=== PATIENT | female | born 1930 | race Caucasian/White ===

== ENCOUNTER → 2016-06-15 | Outpatient (CLI) | payer MEDICARE ==
[~2016-06-15] MED LIST: ASPI81 PO; ATAC32TA4 PO; FE FCAP; LEVO.1 PO
[2016-06-15 13:38] LABS: HEMATOCRIT 33.7 % (35.0-46.0); MEAN CELL VOLUME 98.2 FL (80.0-100.0); MEAN CORPUSCULAR HEMOGLOBIN 32.4 PG (27.0-34.0); PLATELET COUNT 292 TH/MM3 (150-450); RED BLOOD COUNT 3.43 MIL/MM3 (4.00-5.30); RED CELL DISTRIBUTION WIDTH 13.5 % (11.6-17.2); REVIEW FLAG FINAL; WHITE BLOOD COUNT 7.5 TH/MM3 (4.0-11.0)
[2016-06-15 14:08] LABS: ANION GAP 7 MEQ/L (5-15); AST (GOT) 11 U/L (15-37); BICARBONATE 23.6 MEQ/L (21.0-32.0); BLOOD UREA NITROGEN 35 MG/DL (7-18); CHLORIDE 113 MEQ/L (98-107); GLOMERULAR FILTRATION RATE 28 ML/MIN (>89); GLUCOSE,FASTING 135 MG/DL (74-99); POTASSIUM 5.1 MEQ/L (3.5-5.1); SODIUM (NA) 144 MEQ/L (136-145)
[2016-06-15 14:20] LABS: ALKALINE PHOSPHATASE 65 U/L (45-117); ALT (GPT) 17 U/L (10-53); FREE T4 1.26 NG/DL (0.76-1.46); HDL CHOLESTEROL 34.5 MG/DL (40.0-60.0); LDL CHOLESTEROL 111 MG/DL (0-99); LDL CHOLESTEROL DIRECT 125 MG/DL (0-99); TOTAL BILIRUBIN ADULT 0.3 MG/DL (0.2-1.0)
[2016-06-15 14:21] LABS: HEMOGLOBIN A1a 1.2 %; HEMOGLOBIN A1b 2.1 %; HEMOGLOBIN Ao 83.4 %; HEMOGLOBIN LA1C 2.3 %; HEMOGLOBIN P3 5.7 %
== END ==
LOC: PLAB 08:45
PROVIDERS: ATTEND Family Medicine
DX: I12.9 Hypertensive chronic kidney disease with stage 1 through stage 4 chronic kidney disease, or unspecified chronic kidney disease (principal); N18.3 Chronic kidney disease, stage 3 (moderate); E11.9 Type 2 diabetes mellitus without complications; E78.2 Mixed hyperlipidemia; E03.8 Other specified hypothyroidism
CPT/HCPCS: 36415; 80053; 80061; 83036; 83721; 84439; 84443; 85027

== ENCOUNTER → 2016-09-17 | Outpatient (CLI) | payer MEDICARE ==
[2016-09-17 09:52] LABS: HEMATOCRIT 33.7 % (35.0-46.0); MEAN CELL VOLUME 94.8 FL (80.0-100.0); MEAN CORPUSCULAR HEMOGLOBIN 30.6 PG (27.0-34.0); MEAN CORPUSCULAR HGB CONC 32.3 % (32.0-36.0); PLATELET COUNT 307 TH/MM3 (150-450); RED BLOOD COUNT 3.56 MIL/MM3 (4.00-5.30); RED CELL DISTRIBUTION WIDTH 13.7 % (11.6-17.2); REVIEW FLAG FINAL; WHITE BLOOD COUNT 9.1 TH/MM3 (4.0-11.0)
[2016-09-17 10:27] LABS: ANION GAP 9 MEQ/L (5-15); AST (GOT) 17 U/L (15-37); BICARBONATE 21.6 MEQ/L (21.0-32.0); BLOOD UREA NITROGEN 37 MG/DL (7-18); CHLORIDE 110 MEQ/L (98-107); GLOMERULAR FILTRATION RATE 28 ML/MIN (>89); GLUCOSE,FASTING 120 MG/DL (74-99); SODIUM (NA) 141 MEQ/L (136-145)
[2016-09-17 10:36] LABS: ALKALINE PHOSPHATASE 65 U/L (45-117); ALT (GPT) 20 U/L (10-53); FREE T4 1.15 NG/DL (0.76-1.46); HDL CHOLESTEROL 28.6 MG/DL (40.0-60.0); LDL CHOLESTEROL 107 MG/DL (0-99); LDL CHOLESTEROL DIRECT 112 MG/DL (0-99); TOTAL BILIRUBIN ADULT 0.3 MG/DL (0.2-1.0)
[2016-09-17 16:46] LABS: HEMOGLOBIN A1a 0.9 %; HEMOGLOBIN A1b 2.1 %; HEMOGLOBIN Ao 83.1 %; HEMOGLOBIN LA1C 2.2 %; HEMOGLOBIN P3 6.2 %
== END ==
LOC: PLAB 08:19
PROVIDERS: ATTEND Family Medicine
DX: E78.2 Mixed hyperlipidemia (principal); I12.9 Hypertensive chronic kidney disease with stage 1 through stage 4 chronic kidney disease, or unspecified chronic kidney disease; N18.9 Chronic kidney disease, unspecified; E11.22 Type 2 diabetes mellitus with diabetic chronic kidney disease
CPT/HCPCS: 36415; 80053; 80061; 83036; 83721; 84439; 84443; 85027

== ENCOUNTER 2017-02-24 10:45 | Emergency (ER) | payer MEDICARE ==
[~2017-02-24] VITALS: Ht 170.2 cm; Wt 95.0 kg
[2017-02-24] VITALS (8 sets, daily range): BP systolic 121–193; BP diastolic 64–89; PULSE 63–80; RESP 16–23; TEMP 97.2–97.9; O2SAT 96–100
[2017-02-24] MEDS ORDERED: ATAC32TA4 PO (11:23)
[2017-02-24] MEDS ORDERED: LEVO100T5 PO (11:23)
[2017-02-24] MEDS ORDERED: ASPI1TAB57 PO (11:23)
--- NOTE | 2017-02-24 11:25 | PD ---
HPI Chief Complaint: Headache Time Seen by Provider: 11:13 Travel History International Travel<30 days: No Contact w/Intl Traveler<30days: No Traveled to known affect area: No History of Present Illness HPI The patient is a 86-year-old female who presents to the emergency department for lightheadedness and dizziness. The patient states her symptoms started this morning approximately 6 AM. The patient states that she feels like the room is spinning, also feels lightheaded with nausea and vomiting. The patient does have a history of similar symptoms in the past secondary to vertigo. The patient's did try to administer a dose of her medication for dizziness, however, she subsequently had nausea and vomiting. The patient does complain of intermittent headaches, denies any current headache. She denies any chest pain, shortness of breath, or abdominal pain. She denies any focal deficits of the upper or lower extremities. She does state the room is spinning, but denies any exacerbation by positional changes or head movement. The patient's primary physician is Dr. Erlin Wynn. [facility] Past Medical History Anemia: Yes Cancer: No Cardiovascular Problems: Yes (heart murmur) High Cholesterol: Yes Diabetes: Yes Diminished Hearing: No Hepatitis: No Hiatal Hernia: No Hypertension: Yes Respiratory: No Thyroid Disease: Yes Menopausal: Yes Past Surgical History Endocrine Surgery: Yes (THYROID REMOVAL) Eye Surgery: Yes (swetha cataract surgery) Gynecologic Surgery: Yes (OVARIES REMOVED ) Hysterectomy: Yes (PARTIAL) Other Surgery: Yes Social History Alcohol Use: Yes (1-2 DRINKS A MONTH) Tobacco Use: No Substance Use: No Allergies-Medications (Allergen,Severity, Reaction): Coded Allergies: Sulfa (Sulfonamide Antibiotics) (Verified Allergy, Severe, Hallucinations , Elevated blood pressure, 02/24/17) *MDRO Multi-Drug Resistant Organism (Verified Adverse Reaction, Unknown, 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 Reported Meds & Prescriptions Reported Meds & Active Scripts Active Reported Levothyroxine (Levothyroxine Sodium) 100 Mcg Tab 100 Mcg PO DAILY Atacand Hct (Candesartan-Hydrochlorothiazide) 32-12.5 Mg Tab 1 Tab PO DAILY Aspirin 81 (Aspirin) 81 Mg Tabdr 81 Mg PO DAILY Review of Systems Except as stated in HPI: all other systems reviewed are Neg General / Constitutional: No: Fever Eyes: No: Blurred Vision HENT: Positive: Headaches (intermittent, denies current headache), Vertigo, Lightheadedness Cardiovascular: No: Chest Pain or Discomfort, Palpitations, Tachycardia, Diaphoresis Respiratory: No: Shortness of Breath Gastrointestinal: Positive: Nausea, Vomiting, No: Abdominal Pain Musculoskeletal: No: Weakness Neurologic: Positive: Dizziness, No: Weakness, Focal Abnormalities, Change in Mentation, Slurred Speech, Paresthesia, Sensory Disturbance Physical Exam Narrative GENERAL: Awake, alert, pleasant 86 year-old female who appears her stated age and is in no acute respiratory distress. SKIN: Focused skin assessment warm/dry. HEAD: Atraumatic. Normocephalic. EYES: Pupils equal and round. Pupils are 3 mm is bilateral and reactive. EOMs are intact. Patient is able to see fingers at a distance of 2 feet without difficulty. ENT: No nasal bleeding or discharge. Mucous membranes pink and moist. No visible teeth are dentures. NECK: Trachea midline. No JVD. CARDIOVASCULAR: Regular rate and rhythm. Systolic murmur noted. RESPIRATORY: No accessory muscle use. Clear to auscultation. Breath sounds equal bilaterally. GASTROINTESTINAL: Abdomen soft, non-tender, nondistended. No rebound tenderness. MUSCULOSKELETAL: No obvious deformities. No clubbing. No cyanosis. Bilateral lower extremity pitting edema. NEUROLOGICAL: Awake and alert. No obvious cranial nerve deficits. Motor grossly within normal limits. Normal speech. Nonfocal. Oriented 4. Follows commands without difficulty. Data Data Last Documented VS Vital Signs Date Time Temp Pulse Resp B/P (MAP) Pulse Ox O2 Delivery O2 Flow Rate FiO2 02/24/17 12:28 67 172/78 (109) 02/24/17 12:15 97.5 17 97 Room Air Orders Orders Electrocardiogram (02/24/17 11:19) Complete Blood Count With Diff (02/24/17 11:19) Comprehensive Metabolic Panel (02/24/17 11:19) Magnesium (Mg) (02/24/17 11:19) Ckmb (Isoenzyme) Profile (02/24/17 11:19) Troponin I (02/24/17 11:19) Urinalysis - C+S If Indicated (02/24/17 11:19) Ct Brain W/O Iv Contrast(Rout) (02/24/17 11:19) Ecg Monitoring (02/24/17 11:19) Iv Access Insert/Monitor (02/24/17 11:19) Oximetry (02/24/17 11:19) Meclizine (Antivert) (02/24/17 11:30) Ondansetron Inj (Zofran Inj) (02/24/17 11:30) Sodium Chloride 0.9% Flush (Ns Flush) (02/24/17 11:30) Orthostatic Vital Signs (02/24/17 11:19) Sodium Chlor 0.9% 250 Ml Inj (Ns 250 Ml (02/24/17 11:30) Hydralazine Inj (Apresoline Inj) (02/24/17 12:30) Urine Culture (02/24/17 12:53) Ceftriaxone Inj (Rocephin Inj) (02/24/17 13:30) Labs Laboratory Tests Test 02/24/17 11:43 02/24/17 12:53 White Blood Count 8.3 TH/MM3 Red Blood Count 3.65 MIL/MM3 Hemoglobin 11.2 GM/DL Hematocrit 34.7 % Mean Corpuscular Volume 94.8 FL Mean Corpuscular Hemoglobin 30.7 PG Mean Corpuscular Hemoglobin Concent 32.4 % Red Cell Distribution Width 13.4 % Platelet Count 269 TH/MM3 Mean Platelet Volume 7.4 FL Neutrophils (%) (Auto) 91.4 % Lymphocytes (%) (Auto) 6.3 % Monocytes (%) (Auto) 1.5 % Eosinophils (%) (Auto) 0.5 % Basophils (%) (Auto) 0.3 % Neutrophils # (Auto) 7.7 TH/MM3 Lymphocytes # (Auto) 0.5 TH/MM3 Monocytes # (Auto) 0.1 TH/MM3 Eosinophils # (Auto) 0.0 TH/MM3 Basophils # (Auto) 0.0 TH/MM3 CBC Comment DIFF FINAL Differential Comment Blood Urea Nitrogen 32 MG/DL Creatinine 2.00 MG/DL Random Glucose 154 MG/DL Total Protein 7.7 GM/DL Albumin 3.6 GM/DL Calcium Level 8.9 MG/DL Magnesium Level 2.1 MG/DL Alkaline Phosphatase 71 U/L Aspartate Amino Transf (AST/SGOT) 12 U/L Alanine Aminotransferase (ALT/SGPT) 15 U/L Total Bilirubin 0.2 MG/DL Sodium Level 142 MEQ/L Potassium Level 5.6 MEQ/L Chloride Level 113 MEQ/L Carbon Dioxide Level 21.5 MEQ/L Anion Gap 8 MEQ/L Estimat Glomerular Filtration Rate 24 ML/MIN Total Creatine Kinase 62 U/L Troponin I LESS THAN 0.02 NG/ML Urine Collection Type CLEAN CATCH Urine Color YELLOW Urine Turbidity SLIGHTY CLOUDY Urine pH 5.5 Urine Specific [place] 1.015 Urine Protein TRACE mg/dL Urine Glucose (UA) NEG mg/dL Urine Ketones NEG mg/dL Urine Occult Blood NEG Urine Nitrite NEG Urine Bilirubin NEG Urine Leukocyte Esterase MOD Urine RBC 0-3 /hpf Urine WBC 25-49 /hpf Urine WBC Clumps MOD Urine Bacteria FEW /hpf Microscopic Urinalysis Comment CULTURE INDICATED MDM Medical Decision Making Medical Screen Exam Complete: Yes Emergency Medical Condition: Yes Medical Record Reviewed: Yes Interpretation(s) EKG reveals normal sinus rhythm with a rate of 65. Q wave noted in lead 3. Low QRS voltage in precordial leads. CT of the brain reveals normal for age Last Impressions Head CT 02/24/17 1119 Signed Impressions: Service Date/Time: Friday, February 24, 2017 11:48 - CONCLUSION: Normal for age. Max Gonzalez MD Laboratory Tests Test 02/24/17 11:43 02/24/17 12:53 White Blood Count 8.3 TH/MM3 Red Blood Count 3.65 MIL/MM3 Hemoglobin 11.2 GM/DL Hematocrit 34.7 % Mean Corpuscular Volume 94.8 FL Mean Corpuscular Hemoglobin 30.7 PG Mean Corpuscular Hemoglobin Concent 32.4 % Red Cell Distribution Width 13.4 % Platelet Count 269 TH/MM3 Mean Platelet Volume 7.4 FL Neutrophils (%) (Auto) 91.4 % Lymphocytes (%) (Auto) 6.3 % Monocytes (%) (Auto) 1.5 % Eosinophils (%) (Auto) 0.5 % Basophils (%) (Auto) 0.3 % Neutrophils # (Auto) 7.7 TH/MM3 Lymphocytes # (Auto) 0.5 TH/MM3 Monocytes # (Auto) 0.1 TH/MM3 Eosinophils # (Auto) 0.0 TH/MM3 Basophils # (Auto) 0.0 TH/MM3 CBC Comment DIFF FINAL Differential Comment Blood Urea Nitrogen 32 MG/DL Creatinine 2.00 MG/DL Random Glucose 154 MG/DL Total Protein 7.7 GM/DL Albumin 3.6 GM/DL Calcium Level 8.9 MG/DL Magnesium Level 2.1 MG/DL Alkaline Phosphatase 71 U/L Aspartate Amino Transf (AST/SGOT) 12 U/L Alanine Aminotransferase (ALT/SGPT) 15 U/L Total Bilirubin 0.2 MG/DL Sodium Level 142 MEQ/L Potassium Level 5.6 MEQ/L Chloride Level 113 MEQ/L Carbon Dioxide Level 21.5 MEQ/L Anion Gap 8 MEQ/L Estimat Glomerular Filtration Rate 24 ML/MIN Total Creatine Kinase 62 U/L Troponin I LESS THAN 0.02 NG/ML Urine Collection Type CLEAN CATCH Urine Color YELLOW Urine Turbidity SLIGHTY CLOUDY Urine pH 5.5 Urine Specific [place] 1.015 Urine Protein TRACE mg/dL Urine Glucose (UA) NEG mg/dL Urine Ketones NEG mg/dL Urine Occult Blood NEG Urine Nitrite NEG Urine Bilirubin NEG Urine Leukocyte Esterase MOD Urine RBC 0-3 /hpf Urine WBC 25-49 /hpf Urine WBC Clumps MOD Urine Bacteria FEW /hpf Microscopic Urinalysis Comment CULTURE INDICATED Differential Diagnosis Differential diagnosis includes vertigo, labyrinthitis, serous otitis, labyrinthitis, Mnire's disease, hyponatremia, arrhythmia, intracranial hemorrhage, cerebellar CVA, UTI. Narrative Course IV was established, labs are drawn and sent, and the patient was placed on cardiac telemetry monitoring and continuous pulse oximetry monitoring. EKG was ordered and interpreted. Orthostatic vital signs were obtained. The patient was administered Zofran, meclizine, normal saline [address] of the brain was obtained. CT of the brain was negative. The patient's creatinine was 2, GFR was 32, her baseline GFR appears to be between 32 and 37. Potassium is mildly elevated at 5.6,, her baseline potassium appears to be around 5-5.2 based on previous laboratory evaluations. EKG reveals no evidence of hyperkalemia. The patient's blood pressure was elevated with a systolic 190s and diastolic in the 80s, therefore, patient was administered hydralazine intravenously. UA reveals moderate leukocyte esterase, bacteria, and WBCs consistent with UTI. The patient was health care specialist Rocephin 1 g intravenously and will be placed on Macrobid. The patient is advised to take her antihypertensive medication when she returns home. She will also be prescribed Zofran and meclizine as needed for her vertigo. Return if symptoms worsen or progress. Diagnosis Primary Impression: Vertigo Additional Impressions: Nausea & vomiting Qualified Codes: R11.2 - Nausea with vomiting, unspecified UTI (urinary tract infection) Qualified Codes: N30.00 - Acute cystitis without hematuria Patient Instructions: General Instructions Additional Instructions: Medications as directed. Repeat your creatinine and potassium level with your primary physician. Follow-up with your primary physician. Please provide the patient a copy of her CT results and lab results at discharge. Return if symptoms worsen or progress. Med/Other Pt SpecificInfo: Prescription(s) given Scripts Meclizine (Meclizine) 25 Mg Tab 25 MG PO TID Y for VERTIGO, #12 TAB 0 Refills Prov: Enrique Fontanez MD 02/24/17 Ondansetron Odt (Zofran Odt) 4 Mg Tab 4 MG SL Q6HR Y for Nausea/Vomiting, #10 TAB 0 Refills Prov: Enrique Fontanez MD 02/24/17 Nitrofurantoin Monohydrate Macrocrystals (Macrobid) 100 Mg Cap 100 MG PO BID for Infection for 10 Days, #20 CAP 0 Refills Prov: Enrique Fontanez MD 02/24/17 Disposition: 01 DISCHARGE HOME Condition: Stable Enrique Fontanez MD Feb 24, 2017 11:25
[2017-02-24] MEDS ORDERED: MECLIZINE HCL 25 MG TAB PO ONE (11:30)
[2017-02-24] MEDS ORDERED: SODIUM CHLOR 0.9% 250 ML INJ 250 ML IV ONE (11:30)
[2017-02-24] MEDS ORDERED: SODIUM CHLORIDE 0.9% FLUSH 10 ML FLUSH IVF PRN (11:30)
[2017-02-24] MEDS ORDERED: ONDANSETRON HCL 4 MG/2 ML VIAL IVP ONE (11:30)
[2017-02-24 11:47] LABS: AUTOMATED NEUTROPHIL # 7.7 TH/MM3 (1.8-7.7); BASOPHIL % 0.3 % (0.0-2.0); EOSINOPHIL % 0.5 % (0.0-4.0); HEMATOCRIT 34.7 % (35.0-46.0); HEMO FLAGS DIFF FINAL; LYMPH % 6.3 % (9.0-44.0); LYMPHOCYTE # 0.5 TH/MM3 (1.0-4.8); MEAN CELL VOLUME 94.8 FL (80.0-100.0); MEAN CORPUSCULAR HEMOGLOBIN 30.7 PG (27.0-34.0); MEAN CORPUSCULAR HGB CONC 32.4 % (32.0-36.0); MONO % 1.5 % (0.0-8.0); NEUT % 91.4 % (16.0-70.0); PLATELET COUNT 269 TH/MM3 (150-450); RED BLOOD COUNT 3.65 MIL/MM3 (4.00-5.30); RED CELL DISTRIBUTION WIDTH 13.4 % (11.6-17.2); WHITE BLOOD COUNT 8.3 TH/MM3 (4.0-11.0)
[2017-02-24 11:56] LABS: CHLORIDE 113 MEQ/L (98-107); POTASSIUM 5.6 MEQ/L (3.5-5.1); SODIUM (NA) 142 MEQ/L (136-145)
[2017-02-24 12:00] LABS: ANION GAP 8 MEQ/L (5-15); BICARBONATE 21.5 MEQ/L (21.0-32.0); BLOOD UREA NITROGEN 32 MG/DL (7-18); MAGNESIUM 2.1 MG/DL (1.5-2.5)
[2017-02-24 12:03] LABS: ALT (GPT) 15 U/L (10-53); AST (GOT) 12 U/L (15-37); GLOMERULAR FILTRATION RATE 24 ML/MIN (>89)
--- NOTE | 2017-02-24 12:03 | RADRPT ---
EXAM DATE/TIME: 02/24/2017 11:48 [facility] COMPARISON: CT BRAIN W/O CONTRAST, August 18, 2015, 11:22. INDICATIONS : Headache and dizziness. RADIATION DOSE: 59.96 CTDIvol (mGy) MEDICAL HISTORY : Hypertension. Hypothyroidism. Hypercholesterolemia.Diabetes. SURGICAL HISTORY : Thyroidectomy. Bilateral cataract. ENCOUNTER: Initial ACUITY: 1 day PAIN SCALE: 4/10 LOCATION: cranial TECHNIQUE: Multiple contiguous axial images were obtained of the head. Using automated exposure control and adj ustment of the mA and/or kV according to patient size, radiation dose was kept as low as reasonably a chievable to obtain optimal diagnostic quality images. DICOM format image data is available electro nically for review and comparison. FINDINGS: CEREBRUM: The ventricles are normal for age. No evidence of midline shift, mass lesion, hemorrhage or acute in farction. No extra-axial fluid collections are seen. POSTERIOR FOSSA: The cerebellum and brainstem are intact. The 4th ventricle is midline. The cerebellopontine angle i s unremarkable. EXTRACRANIAL: The visualized portion of the orbits is intact. SKULL: The calvaria is intact. No evidence of skull fracture. CONCLUSION: Normal for age. Max Gonzalez MD on February 24, 2017 at 12:01 Board Certified Radiologist. This report was verified electronically.
[2017-02-24 12:05] LABS: TOTAL BILIRUBIN ADULT 0.2 MG/DL (0.2-1.0)
[2017-02-24 12:06] LABS: ALKALINE PHOSPHATASE 71 U/L (45-117)
[2017-02-24 12:07] LABS: CREATINE KINASE 62 U/L (26-192)
[2017-02-24] MEDS ORDERED: hydrALAZINE HCL 20 MG/ML VIAL IV PUSH ONE (12:30)
[2017-02-24 13:07] LABS: BLOOD, URINE NEG (NEG); GLUCOSE,URINE NEG (NEG); KETONE, URINE NEG (NEG); NITRITE,URINE NEG (NEG); PH, URINE 5.5 (5.0-8.5)
[2017-02-24 13:13] LABS: METHOD OF COLLECTION CLEAN CATCH; URINE COLOR YELLOW (YELLW/STRAW)
[2017-02-24 13:14] LABS: BACTERIA, URINE FEW /hpf; COMMENT (UR) CULTURE INDICATED; CULTURE IF INDICATED CULTURE INDICATED; RBC, URINE 0-3 /hpf (0-3)
[2017-02-24] MEDS ORDERED: MECL-62 PO (13:20)
[2017-02-24] MEDS ORDERED: ZOFR4TAB3 SL (13:20)
[2017-02-24] MEDS ORDERED: MACR100C2 PO (13:20)
[2017-02-24] MEDS ORDERED: cefTRIAXone INJ 1,000 MG in SODIUM CHLORIDE 0.9% INJ 100 ML IV ONE (13:30)
--- NOTE | 2017-02-25 16:13 | EKG ---
Date Performed: 02/24/2017 Time Performed: 11:24:55 PTAGE: 86 years EKG: Sinus rhythm MARKED LEFT AXIS DEVIATION LOW QRS VOLTAGE IN PRECORDIAL LEADS POSSIBLE ANTERIOR MYOCARDIAL INFARCTI ON Compared to prior tracing no significant change ABNORMAL ECG PREVIOUS TRACING : 08/18/2015 10.02 DOCTOR: El Pedraza Interpretating Date/Time 02/25/2017 16:12:03
== END 2017-02-24 15:13 | disposition home or self-care (01) ==
LOC: PHED 10:45
DX: R42 Dizziness and giddiness (principal); R11.2 Nausea with vomiting, unspecified; R94.31 Abnormal electrocardiogram [ECG] [EKG]; N30.00 Acute cystitis without hematuria; B96.1 Klebsiella pneumoniae [K. pneumoniae] as the cause of diseases classified elsewhere
CPT/HCPCS: 70450; 80053; 81001; 82550; 83735; 84484; 85025; 87077; 87086; 87186; 93005; 96361; 96365; 96375; 99285; J0360; J0696; J2405; J7050

== ENCOUNTER 2017-03-09 11:15 | Emergency (ER) | payer MEDICARE ==
[~2017-03-09] VITALS: Ht 170.2 cm; Wt 93.5 kg
[~2017-03-09 11:15] MED LIST changes: +ASPI1TAB57 PO; -ASPI81 PO; -FE FCAP; -LEVO.1 PO; +LEVO100T5 PO; +MACR100C2 PO; +MECL-62 PO; +ZOFR4TAB3 SL
[2017-03-09 11:29] VITALS: BP 199/77; PULSE 75; RESP 18; TEMP 98
--- NOTE | 2017-03-09 11:56 | PD ---
HPI Chief Complaint: Dizziness Time Seen by Provider: 11:39 Travel History International Travel<30 days: No Contact w/Intl Traveler<30days: No Traveled to known affect area: No History of Present Illness HPI Patient is an 86-year-old female with a history of vertigo presents the emergency department for evaluation of dizziness and nausea onset this morning at breakfast several hours ago. Patient was here to 3 weeks ago had CAT scan of her head as well as basic labs was given meclizine and Zofran as she had nausea and vomiting at that time and began to feel better. The patient relates a history to me that she had vertigo before and her did "a maneuver" probably the Ebenezer maneuver and this relieved her vertigo for many years and that returned a few days ago. Patient denies any focalized weakness visual difficulties denies any nausea or vomiting today. She states her symptoms are moderate, context as above, associated signs symptoms as above, no alleviating or exacerbating factors. She did take meclizine prior to arrival which no relief. PFSH Past Medical History Anemia: Yes Cancer: No Cardiovascular Problems: Yes (heart murmur) High Cholesterol: Yes Diabetes: Yes Patient Takes Glucophage: No Diminished Hearing: No Hepatitis: No Hiatal Hernia: No Hypertension: Yes Medical other: Yes (rheumatoid arthritis,hx of anemia,back problems) Respiratory: No Thyroid Disease: Yes Menopausal: Yes Past Surgical History Endocrine Surgery: Yes (THYROID REMOVAL) Eye Surgery: Yes (swetha cataract surgery) Gynecologic Surgery: Yes (OVARIES REMOVED ) Hysterectomy: Yes (PARTIAL) Other Surgery: Yes Social History Alcohol Use: No Tobacco Use: No Substance Use: No Allergies-Medications (Allergen,Severity, Reaction): Coded Allergies: Sulfa (Sulfonamide Antibiotics) (Verified Allergy, Severe, Hallucinations , Elevated blood pressure, 02/24/17) *MDRO Multi-Drug Resistant Organism (Verified Adverse Reaction, Unknown, 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 SKIN: Focused skin assessment warm/dry. HEAD: Atraumatic. Normocephalic. EYES: Pupils equal and round. No scleral icterus. No injection or drainage. ENT: No nasal bleeding or discharge. Mucous membranes pink and moist. NECK: Trachea midline. No JVD. CARDIOVASCULAR: Regular rate and rhythm. No murmur appreciated. RESPIRATORY: No accessory muscle use. Clear to auscultation. Breath sounds equal bilaterally. GASTROINTESTINAL: Abdomen soft, non-tender, nondistended. Hepatic and splenic margins not palpable. MUSCULOSKELETAL: No obvious deformities. No clubbing. No cyanosis. No edema. NEUROLOGICAL: Awake and alert. Cranial nerves II through XII are grossly intact and nonfocal, no nystagmus is observed. Pupils equal round and reactive to light. Cerebellar testing with [id number] and heel ruiz testing are negative. Patient ambulates cruising along the cuevas reaching out for things to hold her balance. She has a short gait very intentional and appears fairly unbalanced. The Romberg sign was not attempted. PSYCHIATRIC: Appropriate mood and affect; insight and judgment normal. Data Data Last Documented VS Vital Signs Date Time Temp Pulse Resp B/P (MAP) Pulse Ox O2 Delivery O2 Flow Rate FiO2 03/09/17 15:07 03/09/17 14:46 77 18 95 Room Air 03/09/17 11:29 98.0 Orders Orders Electrocardiogram (03/09/17 11:51) Ckmb (Isoenzyme) Profile (03/09/17 11:51) Complete Blood Count With Diff (03/09/17 11:51) Comprehensive Metabolic Panel (03/09/17 11:51) Magnesium (Mg) (03/09/17 11:51) Prothrombin Time / Inr (Pt) (03/09/17 11:51) Act Partial Throm Time (Ptt) (03/09/17 11:51) Troponin I (03/09/17 11:51) Ecg Monitoring (03/09/17 11:51) Iv Access Insert/Monitor (03/09/17 11:51) Oximetry (03/09/17 11:51) Oxygen Administration (03/09/17 11:51) Aspirin Chew (Aspirin Chew) (03/09/17 12:00) Sodium Chloride 0.9% Flush (Ns Flush) (03/09/17 12:00) Mri Brain W/O Contrast (03/09/17 11:51) Diazepam (Valium) (03/09/17 12:00) Ed Discharge Order (03/09/17 14:54) Labs Laboratory Tests Test 03/09/17 12:05 White Blood Count 6.8 TH/MM3 Red Blood Count 3.43 MIL/MM3 Hemoglobin 10.8 GM/DL Hematocrit 32.4 % Mean Corpuscular Volume 94.6 FL Mean Corpuscular Hemoglobin 31.4 PG Mean Corpuscular Hemoglobin Concent 33.2 % Red Cell Distribution Width 13.3 % Platelet Count 242 TH/MM3 Mean Platelet Volume 7.4 FL Neutrophils (%) (Auto) 68.2 % Lymphocytes (%) (Auto) 19.3 % Monocytes (%) (Auto) 8.7 % Eosinophils (%) (Auto) 3.6 % Basophils (%) (Auto) 0.2 % Neutrophils # (Auto) 4.7 TH/MM3 Lymphocytes # (Auto) 1.3 TH/MM3 Monocytes # (Auto) 0.6 TH/MM3 Eosinophils # (Auto) 0.2 TH/MM3 Basophils # (Auto) 0.0 TH/MM3 CBC Comment DIFF FINAL Differential Comment Prothrombin Time 11.5 SEC Prothromb Time International Ratio 1.0 RATIO Activated Partial Thromboplast Time 28.7 SEC Blood Urea Nitrogen 37 MG/DL Creatinine 2.20 MG/DL Random Glucose 118 MG/DL Total Protein 7.6 GM/DL Albumin 3.4 GM/DL Calcium Level 8.4 MG/DL Magnesium Level 2.1 MG/DL Alkaline Phosphatase 76 U/L Aspartate Amino Transf (AST/SGOT) 12 U/L Alanine Aminotransferase (ALT/SGPT) 15 U/L Total Bilirubin 0.4 MG/DL Sodium Level 141 MEQ/L Potassium Level 4.9 MEQ/L Chloride Level 112 MEQ/L Carbon Dioxide Level 20.6 MEQ/L Anion Gap 8 MEQ/L Estimat Glomerular Filtration Rate 21 ML/MIN Total Creatine Kinase 59 U/L Troponin I LESS THAN 0.02 NG/ML MDM Medical Decision Making Medical Screen Exam Complete: Yes Emergency Medical Condition: Yes Differential Diagnosis Basilar stroke certainly a possibility, vertigo, electrolyte abnormality. Narrative Course Patient roomed in emergency department, underwent MRI imaging which showed no acute abnormality per Last 24 hours Impressions Brain MRI 03/09/17 1151 Signed Impressions: Service Date/Time: Saturday, March 09, 2017 14:18 - CONCLUSION: 1. Senescent changes with mild periventricular and deep white matter small vessel ischemic white matter demyelination. 2. No acute abnormality. Specifically, no evidence for acute ischemia/infarction, mass or hemorrhage. 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 He states symptoms are fairly mild. The patient is fairly slow to respond May but is otherwise able to give her appears to be an accurate history. At this time after Valium she is feeling much better and would like to go home. Discussed with them the Ebenezer maneuver and a handout was given, discussed follow-up the primary care physician and return to ED criteria. Diagnosis Primary Impression: Vertigo Disposition: 01 DISCHARGE HOME Condition: Stable Stefano Valle MD Mar 09, 2017 11:56
[2017-03-09] MEDS ORDERED: SODIUM CHLORIDE 0.9% FLUSH 10 ML FLUSH IVF PRN (12:00)
[2017-03-09] MEDS ORDERED: DIAZEPAM 5 MG TAB PO ONE (12:00)
[2017-03-09] MEDS ORDERED: ASPIRIN 81 MG CHEW TAB PO ONE (12:00)
[2017-03-09 12:13] LABS: AUTOMATED NEUTROPHIL # 4.7 TH/MM3 (1.8-7.7); BASOPHIL % 0.2 % (0.0-2.0); EOSINOPHIL # 0.2 TH/MM3 (0-0.4); EOSINOPHIL % 3.6 % (0.0-4.0); HEMATOCRIT 32.4 % (35.0-46.0); HEMO FLAGS DIFF FINAL; LYMPH % 19.3 % (9.0-44.0); LYMPHOCYTE # 1.3 TH/MM3 (1.0-4.8); MEAN CELL VOLUME 94.6 FL (80.0-100.0); MEAN CORPUSCULAR HEMOGLOBIN 31.4 PG (27.0-34.0); MEAN CORPUSCULAR HGB CONC 33.2 % (32.0-36.0); MONO % 8.7 % (0.0-8.0); NEUT % 68.2 % (16.0-70.0); PLATELET COUNT 242 TH/MM3 (150-450); RED BLOOD COUNT 3.43 MIL/MM3 (4.00-5.30); RED CELL DISTRIBUTION WIDTH 13.3 % (11.6-17.2); WHITE BLOOD COUNT 6.8 TH/MM3 (4.0-11.0)
[2017-03-09 12:15] VITALS: RESP 18; O2SAT 96
[2017-03-09 12:16] VITALS: BP 180/84; PULSE 68; RESP 18; O2SAT 96
[2017-03-09 12:23] LABS: CHLORIDE 112 MEQ/L (98-107); POTASSIUM 4.9 MEQ/L (3.5-5.1); SODIUM (NA) 141 MEQ/L (136-145)
[2017-03-09 12:26] LABS: ANION GAP 8 MEQ/L (5-15); BICARBONATE 20.6 MEQ/L (21.0-32.0); MAGNESIUM 2.1 MG/DL (1.5-2.5)
[2017-03-09 12:27] LABS: BLOOD UREA NITROGEN 37 MG/DL (7-18)
[2017-03-09 12:28] LABS: APTT (PATIENT) 28.7 SEC (24.3-30.1); PROTHROMBIN TIME - PATIENT 11.5 SEC (9.8-11.6)
[2017-03-09 12:30] LABS: ALT (GPT) 15 U/L (10-53); AST (GOT) 12 U/L (15-37); GLOMERULAR FILTRATION RATE 21 ML/MIN (>89)
[2017-03-09 12:31] LABS: TOTAL BILIRUBIN ADULT 0.4 MG/DL (0.2-1.0)
[2017-03-09 12:32] LABS: ALKALINE PHOSPHATASE 76 U/L (45-117)
[2017-03-09 12:37] LABS: CREATINE KINASE 59 U/L (26-192)
[2017-03-09 13:01] VITALS: BP 165/86; PULSE 66; RESP 18; O2SAT 95
[2017-03-09 14:19] VITALS: BP 196/90; PULSE 76; RESP 18; O2SAT 96
--- NOTE | 2017-03-09 14:35 | RADRPT ---
EXAM DATE/TIME: 03/09/2017 14:18 [facility] COMPARISON: No previous studies available for comparison. INDICATIONS : Dizziness. MEDICAL HISTORY : Hypertension. Hypercholesterolemia. Diabetes mellitus type 2. SURGICAL HISTORY : Cholecystectomy. Discectomy, lumbar. ENCOUNTER: Initial ACUITY: 1 day PAIN SCORE: 0/10 LOCATION: cranial TECHNIQUE: Multiplanar, multisequence MRI of the brain was performed without contrast. FINDINGS: CEREBRUM: Mild diffuse cerebral volume loss. The ventricles are normal for degree of atrophy. No evidence of m idline shift, mass lesion, hemorrhage or acute infarction. No extraaxial fluid collections are seen. The pituitary gland and suprasellar cistern are normal in configuration. WHITE MATTER: Mild periventricular and scattered deep white matter focal T2 prolongation consistent with small vess el ischemic white matter demyelination. POSTERIOR FOSSA: The cerebellum and brainstem are intact. The 4th ventricle is midline. The cerebellopontine angle is unremarkable. The cerebellar tonsils are normal in position. DIFFUSION IMAGING: No focal areas of restricted diffusion are seen. No evidence of acute infarction. EXTRACRANIAL: The visualized portions of the orbits and paranasal sinuses are unremarkable. CONCLUSION: 1. Senescent changes with mild periventricular and deep white matter small vessel ischemic white sarah er demyelination. 2. No acute abnormality. Specifically, no evidence for acute ischemia/infarction, mass or hemorrhage. Donnie Guardado MD on March 09, 2017 at 14:28 Board Certified Radiologist. This report was verified electronically.
[2017-03-09 14:46] VITALS: BP 171/76; PULSE 77; RESP 18; O2SAT 95
--- NOTE | 2017-03-10 22:53 | EKG ---
Date Performed: 03/09/2017 Time Performed: 12:03:02 PTAGE: 86 years EKG: Sinus rhythm BORDERLINE LEFT AXIS DEVIATION PREVIOUS TRACING : 02/24/2017 11.24 Compared to prior tracing no significant change DOCTOR: Cordell Arreola Interpretating Date/Time 03/10/2017 22:52:56
== END 2017-03-09 15:11 | disposition home or self-care (01) ==
LOC: PHED 11:15
DX: R42 Dizziness and giddiness (principal); I10 Essential (primary) hypertension; E07.9 Disorder of thyroid, unspecified; Z79.899 Other long term (current) drug therapy
CPT/HCPCS: 70551; 80053; 82550; 83735; 84484; 85025; 85610; 85730; 93005

== ENCOUNTER → 2017-03-19 | Outpatient (CLI) | payer MEDICARE ==
[~2017-03-19] MED LIST changes: -MACR100C2 PO
[2017-03-19 13:34] LABS: ANION GAP 8 MEQ/L (5-15); AST (GOT) 17 U/L (15-37); BICARBONATE 21.4 MEQ/L (21.0-32.0); BLOOD UREA NITROGEN 35 MG/DL (7-18); CHLORIDE 114 MEQ/L (98-107); GLOMERULAR FILTRATION RATE 19 ML/MIN (>89); HEMATOCRIT 34.1 % (35.0-46.0); MEAN CELL VOLUME 97.6 FL (80.0-100.0); MEAN CORPUSCULAR HEMOGLOBIN 32.2 PG (27.0-34.0); PLATELET COUNT 259 TH/MM3 (150-450); POTASSIUM 4.7 MEQ/L (3.5-5.1); RED BLOOD COUNT 3.49 MIL/MM3 (4.00-5.30); RED CELL DISTRIBUTION WIDTH 14.4 % (11.6-17.2); REVIEW FLAG FINAL; SODIUM (NA) 143 MEQ/L (136-145); WHITE BLOOD COUNT 7.5 TH/MM3 (4.0-11.0)
[2017-03-19 13:48] LABS: ALKALINE PHOSPHATASE 76 U/L (45-117); ALT (GPT) 16 U/L (10-53); FREE T4 1.01 NG/DL (0.76-1.46); GLUCOSE,FASTING 110 MG/DL (74-99); HDL CHOLESTEROL 33.7 MG/DL (40.0-60.0); LDL CHOLESTEROL 108 MG/DL (0-99); LDL CHOLESTEROL DIRECT 122 MG/DL (0-99); TOTAL BILIRUBIN ADULT 0.2 MG/DL (0.2-1.0)
[2017-03-19 14:01] LABS: HEMOGLOBIN A1b 2.1 %; HEMOGLOBIN Ao 83.4 %; HEMOGLOBIN LA1C 2.5 %
== END ==
LOC: PLAB 08:01
PROVIDERS: ATTEND Family Medicine
DX: E11.9 Type 2 diabetes mellitus without complications (principal); E78.2 Mixed hyperlipidemia; I10 Essential (primary) hypertension; E03.8 Other specified hypothyroidism
CPT/HCPCS: 36415; 80053; 80061; 83036; 83721; 84439; 84443; 85027

== ENCOUNTER → 2017-03-27 | Outpatient (CLI) | payer MEDICARE ==
[2017-03-27 16:22] LABS: BICARBONATE 21.2 MEQ/L (21.0-32.0); MAGNESIUM 1.6 MG/DL (1.5-2.5); POTASSIUM 5.4 MEQ/L (3.5-5.1)
== END ==
LOC: PLAB 13:03
PROVIDERS: ATTEND Family Medicine
DX: N18.4 Chronic kidney disease, stage 4 (severe) (principal); I10 Essential (primary) hypertension
CPT/HCPCS: 36415; 80048; 83735; 83970; 84100

== ENCOUNTER → 2017-06-19 | Outpatient (CLI) | payer MEDICARE ==
[2017-06-19 10:54] LABS: HEMATOCRIT 31.9 % (35.0-46.0); HEMOGLOBIN 10.9 GM/DL (11.6-15.3); MEAN CELL VOLUME 97.1 FL (80.0-100.0); MEAN CORPUSCULAR HEMOGLOBIN 33.2 PG (27.0-34.0); MEAN CORPUSCULAR HGB CONC 34.2 % (32.0-36.0); PLATELET COUNT 292 TH/MM3 (150-450); RED BLOOD COUNT 3.29 MIL/MM3 (4.00-5.30); RED CELL DISTRIBUTION WIDTH 14.2 % (11.6-17.2); WHITE BLOOD COUNT 7.3 TH/MM3 (4.0-11.0)
[2017-06-19 11:04] LABS: ALBUMIN 3.5 GM/DL (3.4-5.0); AST (GOT) 11 U/L (15-37); BICARBONATE 23.2 MEQ/L (21.0-32.0); BLOOD UREA NITROGEN 28 MG/DL (7-18); CALCIUM 8.3 MG/DL (8.5-10.1); CHLORIDE 113 MEQ/L (98-107); CHOLESTEROL 149 MG/DL (120-200); CREATININE 2.03 MG/DL (0.50-1.00); GLOMERULAR FILTRATION RATE 23 ML/MIN (>89); SODIUM (NA) 144 MEQ/L (136-145)
[2017-06-19 11:07] LABS: GLUCOSE,FASTING 115 MG/DL (74-99)
[2017-06-19 11:21] LABS: ALKALINE PHOSPHATASE 81 U/L (45-117); ALT (GPT) 14 U/L (10-53); CHOLESTEROL/ HDL RATIO 4.28 RATIO; FREE T4 1.13 NG/DL (0.76-1.46); HDL CHOLESTEROL 34.8 MG/DL (40.0-60.0); LDL CHOLESTEROL 85 MG/DL (0-99); LDL CHOLESTEROL DIRECT 102 MG/DL (0-99); TOTAL BILIRUBIN ADULT 0.4 MG/DL (0.2-1.0); TOTAL PROTEIN 7.4 GM/DL (6.4-8.2); TRIGLYCERIDES 148 MG/DL (42-150)
[2017-06-19 16:56] LABS: HEMOGLOBIN A1C 5.7 % (4.3-6.0)
== END ==
LOC: PLAB 08:37
PROVIDERS: ATTEND Family Medicine
DX: E11.9 Type 2 diabetes mellitus without complications (principal); E78.2 Mixed hyperlipidemia; I10 Essential (primary) hypertension; E03.8 Other specified hypothyroidism
CPT/HCPCS: 36415; 80053; 80061; 83036; 83721; 84439; 84443; 85027

== ENCOUNTER → 2017-09-23 | Outpatient (CLI) | payer MEDICARE ==
[2017-09-23 10:16] LABS: HEMATOCRIT 34.9 % (35.0-46.0); HEMOGLOBIN 11.6 GM/DL (11.6-15.3); MEAN CELL VOLUME 96.6 FL (80.0-100.0); MEAN CORPUSCULAR HGB CONC 33.1 % (32.0-36.0); MEAN PLATELET VOLUME 7.9 FL (7.0-11.0); PLATELET COUNT 239 TH/MM3 (150-450); RED BLOOD COUNT 3.61 MIL/MM3 (4.00-5.30); RED CELL DISTRIBUTION WIDTH 14.2 % (11.6-17.2); WHITE BLOOD COUNT 5.9 TH/MM3 (4.0-11.0)
[2017-09-23 10:36] LABS: ALBUMIN 3.6 GM/DL (3.4-5.0); ALT (GPT) 11 U/L (10-53); AST (GOT) 15 U/L (15-37); BICARBONATE 21.2 MEQ/L (21.0-32.0); BLOOD UREA NITROGEN 29 MG/DL (7-18); CALCIUM 8.4 MG/DL (8.5-10.1); CHLORIDE 117 MEQ/L (98-107); CHOLESTEROL 182 MG/DL (120-200); CREATININE 2.06 MG/DL (0.50-1.00); GLOMERULAR FILTRATION RATE 23 ML/MIN (>89); GLUCOSE,FASTING 99 MG/DL (74-99); MAGNESIUM 1.7 MG/DL (1.5-2.5); SODIUM (NA) 144 MEQ/L (136-145)
[2017-09-23 10:45] LABS: ALKALINE PHOSPHATASE 75 U/L (45-117); CHOLESTEROL/ HDL RATIO 5.06 RATIO; HDL CHOLESTEROL 35.9 MG/DL (40.0-60.0); LDL CHOLESTEROL 115 MG/DL (0-99); LDL CHOLESTEROL DIRECT 114 MG/DL (0-99); PHOSPHORUS 3.1 MG/DL (2.5-4.9); TOTAL BILIRUBIN ADULT 0.4 MG/DL (0.2-1.0); TOTAL PROTEIN 7.5 GM/DL (6.4-8.2); TRIGLYCERIDES 156 MG/DL (42-150)
[2017-09-23 16:01] LABS: HEMOGLOBIN A1C 5.6 % (4.3-6.0)
== END ==
LOC: PLAB 07:56
PROVIDERS: ATTEND Family Medicine
DX: E78.5 Hyperlipidemia, unspecified (principal); E03.8 Other specified hypothyroidism; I12.9 Hypertensive chronic kidney disease with stage 1 through stage 4 chronic kidney disease, or unspecified chronic kidney disease; E11.22 Type 2 diabetes mellitus with diabetic chronic kidney disease; N18.4 Chronic kidney disease, stage 4 (severe); Z11.9 Encounter for screening for infectious and parasitic diseases, unspecified
CPT/HCPCS: 36415; 80053; 80061; 83036; 83721; 83735; 83970; 84100; 84439; 84443; 85027

== ENCOUNTER 2018-04-10 06:15 | Inpatient (IN) ==
--- NOTE | 2018-04-10 07:08 | ED ---
HPI General Chief Complaint: Dizziness Stated Complaint: fall/evac Time Seen by Provider: 04/10/18 06:55 Source: patient, family and EMS Mode of arrival: EMS Limitations: no limitations History of Present Illness HPI Narrative: 87-year-old female presents to the emergency department by EMS transport from home after non-syncopal slip and fall just prior to arrival to the emergency department with complaint of dizziness. Patient presents with posterior scalp hematoma. Fall was witnessed with no loss of consciousness. Patient denies neck pain chest pain back pain abdominal pain or extremity injury. Complains of some headache. Patient has history of vertigo according to and did not take any Antivert. Patient takes no blood thinning agent. Patient denies chest pain or shortness of breath. Has had no nausea or vomiting. MD complaint: Reports dizziness Onset (ago): minute(s) Timing: awoke with symptoms Description: Reports other (lost balance and fell) History of similar episodes: Yes History of trauma: Yes Severity: similar to previous episodes Relieving factors: nothing Exacerbating factors: movement Associated symptoms: Denies ataxia, chest pain, confusion, diaphoresis, fever, chills, malaise, rash, shortness of breath, syncope, weakness, vision changes, nausea and vomiting Related Data Home Medications Medication Instructions Recorded Confirmed levothyroxine [Synthroid] 50 mcg PO DAILY 04/10/18 04/10/18 meclizine 25 mg PO 04/10/18 Allergies Allergy/AdvReac Type Severity Reaction Status Date / Time Sulfa (Sulfonamide Allergy Severe Hallucinations, Verified 04/10/18 06:32 Antibiotics) Elevated blood pressure *MDRO Multi-Drug Resistant AdvReac Unknown Anxiety Uncoded 04/10/18 06:32 Organism Review of Systems ROS: all other systems reviewed are negative [facility] Medical History Medical History Hx of thyroid disease (Acute) Hx of vertigo (Acute) Social History Social History Substance History: No History of Abuse Second Hand Smoke Exposure: No Smoking Status: Former smoker How Often Do You Have a Drink Containing Alcohol: Never Recent Travel in [facility] within the Last 8 Weeks: No Recent Out of Country Travel within the Last 8 Weeks: No Immunization History Tetanus Immunization: Unsure Exam Narrative Exam Narrative: GENERAL: Well-developed elderly female no acute distress no respiratory distress SKIN: Focused skin assessment warm/dry. HEAD: Atraumatic. Normocephalic. Except for posterior occiput soft tissue swelling and tenderness to palpation EYES: Pupils equal and round. No scleral icterus. No injection or drainage. ENT: No nasal bleeding or discharge. Mucous membranes pink and moist. NECK: Trachea midline. No JVD. CARDIOVASCULAR: Regular rate and rhythm. No murmur appreciated. RESPIRATORY: No accessory muscle use. Clear to auscultation. Breath sounds equal bilaterally. GASTROINTESTINAL: Abdomen soft, non-tender, nondistended. Hepatic and splenic margins not palpable. MUSCULOSKELETAL: No obvious deformities. No clubbing. No cyanosis. No edema. NEUROLOGICAL: Awake and alert. No obvious cranial nerve deficits. Motor grossly within normal limits. Normal speech. PSYCHIATRIC: Appropriate mood and affect; insight and judgment normal. Course Initial Documented Vital Signs Temperature 98.0 F 04/10/18 06:28 Pulse Rate 73 04/10/18 06:28 Respiratory Rate 18 04/10/18 06:28 Blood Pressure 184/78 H 04/10/18 06:28 Pulse Oximetry 98 04/10/18 06:28 Last Documented Vital Signs Temperature 97.7 F 04/10/18 07:18 Pulse Rate 66 04/10/18 07:18 Respiratory Rate 18 04/10/18 07:18 Blood Pressure 161/83 H 04/10/18 07:18 Pulse Oximetry 95 04/10/18 07:18 Medical Decision Making MDM Narrative Medical decision making narrative: CT brain noncontrast pending patient administered -[id number] female with no focality on exam except for left posterior scalp hematoma status post non-syncopal slip and fall with history of vertigo and balance disturbance patient given Antivert and Zofran and CT brain noncontrast ordered. Dr. brambila: 87 female here for a fall. Patient felt dizzy when she was getting up, fell hit her head, she has history of vertigo, hypothyroid, hypertension. She takes baby aspirin daily. Her orthostats are not impressive, Her head CT shows 8mm subdural hemorrhage, neurological exam is intact, She is AAOX3 although has some degree of baseline dementia and hearing difficulties which is unchanged according to the at bedside. no neck tenderness to warrant for cervical CT, no evidence of any other trauma on exam. She has +1 pitting edema below knee B/L and a lidocaine patch on her left knee, no bruises or open wounds. Her EKG shows some Twave inversions which could be due to SAH. Her trop is neg. Patient will need to be admitted under trauma surgery and I spoke with Dr. Green who accepted the patient. Medical Screen Exam Complete: Yes Emergency Medical Condition: Yes Lab Data Result diagrams: 04/10/18 08:00 04/10/18 08:00 Lab Results 04/10/18 04/10/18 04/10/18 Range/Units 08:00 08:00 08:00 CBC w Diff Auto diff final WBC 6.6 (4.0-11.0) th/mm3 RBC 3.36 L (4.00-5.30) mil/mm3 Hgb 10.2 L (11.6-15.3) gm/dL Hct 32.5 L (35.0-46.0) % MCV 96.9 (80.0-100.0) fL MCH 30.3 (27.0-34.0) pg MCHC 31.3 L (32.0-36.0) % RDW 13.8 (11.6-17.2) % Plt Count 219 (150-450) th/mm3 MPV 8.2 (7.0-11.0) fL Neut % (Auto) 79.5 H (16.0-70.0) % Lymph % (Auto) 12.5 (9.0-44.0) % [place] % (Auto) 5.5 (0.0-8.0) % Eos % (Auto) 2.3 (0.0-4.0) % Baso % (Auto) 0.2 (0.0-2.0) % Neut # (Auto) 5.2 (1.8-7.7) th/mm3 Lymph # (Auto) 0.8 L (1.0-4.8) th/mm3 [place] # (Auto) 0.4 (0.0-0.9) th/mm3 Eos # (Auto) 0.2 (0.0-0.4) th/mm3 Baso # (Auto) 0.0 (0.0-0.2) th/mm3 WBC Differential . Differential Comment . PT 11.4 (9.8-11.6) sec INR 1.1 Ratio APTT 28.3 (23.4-31.7) sec Sodium 142 (136-145) meq/L Potassium 4.9 (3.5-5.1) meq/L Chloride 116 H (98-107) meq/L Carbon Dioxide 19.8 L (21.0-32.0) meq/L Anion Gap 6 (5-15) meq/L BUN 42 H (7-18) mg/dL Creatinine 2.00 H (0.50-1.00) mg/dL Estimated GFR 24 L (>89) mL/min Random Glucose 128 H (74-106) mg/dL Calcium 8.3 L (8.5-10.1) mg/dL Total Bilirubin 0.3 (0.2-1.0) mg/dL AST 14 L (15-37) U/L ALT 13 (10-53) U/L Alkaline Phosphatase 62 (45-117) U/L Troponin I (0.02-0.05) ng/mL Total Protein 6.8 (6.4-8.2) g/dL Albumin 3.2 L (3.4-5.0) g/dL Ur Collection Type Urine Color (Yellw/Straw) Urine Clarity (Clear) Urine pH (5.0-8.5) Ur Specific [place] (1.002-1.035) Urine Protein (Neg-Trace) mg/dL Urine Glucose (UA) (Negative) mg/dL Urine Ketones (Negative) mg/dL Urine Occult Blood (Negative) Urine Nitrate (Negative) Urine Bilirubin (Negative) Urine Urobilinogen (Less than 2) mg/dL Ur Leukocyte Esterase (Negative) Ur Squamous Epith Cells (0-5) /hpf Micro UA Comment Ur Microscopic Review Urine Culture Comments 04/10/18 04/10/18 Range/Units 08:00 09:40 CBC w Diff WBC (4.0-11.0) th/mm3 RBC (4.00-5.30) mil/mm3 Hgb (11.6-15.3) gm/dL Hct (35.0-46.0) % MCV (80.0-100.0) fL MCH (27.0-34.0) pg MCHC (32.0-36.0) % RDW (11.6-17.2) % Plt Count (150-450) th/mm3 MPV (7.0-11.0) fL Neut % (Auto) (16.0-70.0) % Lymph % (Auto) (9.0-44.0) % [place] % (Auto) (0.0-8.0) % Eos % (Auto) (0.0-4.0) % Baso % (Auto) (0.0-2.0) % Neut # (Auto) (1.8-7.7) th/mm3 Lymph # (Auto) (1.0-4.8) th/mm3 [place] # (Auto) (0.0-0.9) th/mm3 Eos # (Auto) (0.0-0.4) th/mm3 Baso # (Auto) (0.0-0.2) th/mm3 WBC Differential Differential Comment PT (9.8-11.6) sec INR Ratio APTT (23.4-31.7) sec Sodium (136-145) meq/L Potassium (3.5-5.1) meq/L Chloride (98-107) meq/L Carbon Dioxide (21.0-32.0) meq/L Anion Gap (5-15) meq/L BUN (7-18) mg/dL Creatinine (0.50-1.00) mg/dL Estimated GFR (>89) mL/min Random Glucose (74-106) mg/dL Calcium (8.5-10.1) mg/dL Total Bilirubin (0.2-1.0) mg/dL AST (15-37) U/L ALT (10-53) U/L Alkaline Phosphatase (45-117) U/L Troponin I 0.05 (0.02-0.05) ng/mL Total Protein (6.4-8.2) g/dL Albumin (3.4-5.0) g/dL Ur Collection Type Cath Urine Color Straw (Yellw/Straw) Urine Clarity Clear (Clear) Urine pH 5.5 (5.0-8.5) Ur Specific [place] 1.020 (1.002-1.035) Urine Protein Negative (Neg-Trace) mg/dL Urine Glucose (UA) Negative (Negative) mg/dL Urine Ketones Negative (Negative) mg/dL Urine Occult Blood Trace (Negative) Urine Nitrate Negative (Negative) Urine Bilirubin Negative (Negative) Urine Urobilinogen 0.2 (Less than 2) mg/dL Ur Leukocyte Esterase Negative (Negative) Ur Squamous Epith Cells 0-5 (0-5) /hpf Micro UA Comment Culture not ind Ur Microscopic Review Microscopic reviewed Urine Culture Comments Culture not ind Imaging Data Radiologist's impression: Head CT 04/10/18 06:55 CONCLUSION: 1. The examination demonstrates a small area of subdural hemorrhage along the petrous apex measuring a maximum of approximately 8 mm in thickness. There is no significant mass effect associated with this. This is new compared to the previous study of 02/24/2017. 2. Mild cortical atrophy. Chest X-Ray 04/10/18 08:27 CONCLUSION: Stable chest without evidence of acute cardiopulmonary process. Discharge Plan Discharge Disposition Patient Disposition: 02 Transfer To [facility] [place] Discharge Condition Condition: Stable Discharge Order Discharge Orders: ED Use Only Admit Order (Routine); Ordered 04/10/18 Ordered By: Nahid Brambila Physicians Team ED Provider: Morena Hadley Primary Care Provider: Erlin Wynn Attending Provider: Ilene Kendall Discharge Interventions Interventions: Vital Signs Last Done: 04/10/18 07:18 ED Discharge Assessment Last Done: 04/10/18 10:17 Discharge Planning - Case Management Last Done: 04/10/18 09:42 Status ED Status: Admitted Patient
--- NOTE | 2018-04-10 08:01 | CT ---
EXAM DATE: 04/10/2018 7:51 AM EST AGE/SEX: 87 years / Female INDICATIONS: Trauma. Fell and hit back of head. Dizziness. CLINICAL DATA: This is the patient's initial encounter. Patient reports that signs and symptoms have been present for 1 day and indicates a pain score of 5/10. MEDICAL/SURGICAL HISTORY: None. None. RADIATION DOSE: 50.20 CTDI (mGy) COMPARISON: [facility], CT BRAIN W/O CONTRAST, 02/24/2017. . TECHNIQUE: CT of the head without contrast. Using automated exposure control and adjustment of the mA and/or kV according to patient size, radiation dose was kept as low as reasonably achievable to ob tain optimal diagnostic quality images. DICOM format image data is available electronically for revi ew and comparison. FINDINGS: The examination demonstrates a small area of extra-axial hemorrhage layering along the dura abutting the petrous apex on the left. This is small in size measuring approximately 8 mm in maximum thickness . There is no significant mass effect associated with this. There is mild cortical atrophy. The ventricular system is normal in size and configuration. No mass l esion is identified. No findings to indicate acute cortical infarction are present. The skull is intact. The portions of sinus and orbit visualized are clear. CONCLUSION: 1. The examination demonstrates a small area of subdural hemorrhage along the petrous apex measuring a maximum of approximately 8 mm in thickness. There is no significant mass effect associated with th is. This is new compared to the previous study of 02/24/2017. 2. Mild cortical atrophy. Electronically signed by: Philip Scott MD Board Certified Radiologist 04/10/2018 7:59 AM EST
[2018-04-10 08:49] LABS: Baso % (Auto) 0.2 % (0.0-2.0); Eos # (Auto) 0.2 th/mm3 (0.0-0.4); Eos % (Auto) 2.3 % (0.0-4.0); Hematocrit 32.5 % (35.0-46.0); Hemoglobin 10.2 gm/dL (11.6-15.3); Lymph # (Auto) 0.8 th/mm3 (1.0-4.8); Lymph % (Auto) 12.5 % (9.0-44.0); Mean Corpuscular HGB Conc 31.3 % (32.0-36.0); Mean Corpuscular Hemoglobin 30.3 pg (27.0-34.0); Mean Corpuscular Volume 96.9 fL (80.0-100.0); Mean Platelet Volume 8.2 fL (7.0-11.0); Mono # (Auto) 0.4 th/mm3 (0.0-0.9); Mono % (Auto) 5.5 % (0.0-8.0); Neut # (Auto) 5.2 th/mm3 (1.8-7.7); Neut % (Auto) 79.5 % (16.0-70.0); Platelet Count 219 th/mm3 (150-450); Red Blood Count 3.36 mil/mm3 (4.00-5.30); Red Cell Distribution Width 13.8 % (11.6-17.2); White Blood Count 6.6 th/mm3 (4.0-11.0)
[2018-04-10 09:00] LABS: Chloride 116 meq/L (98-107); Potassium 4.9 meq/L (3.5-5.1); Sodium 142 meq/L (136-145)
[2018-04-10 09:03] LABS: Calcium 8.3 mg/dL (8.5-10.1)
[2018-04-10 09:04] LABS: Albumin 3.2 g/dL (3.4-5.0); Anion Gap 6 meq/L (5-15); Blood Urea Nitrogen 42 mg/dL (7-18); Carbon Dioxide 19.8 meq/L (21.0-32.0); Glucose,Random 128 mg/dL (74-106)
[2018-04-10 09:05] LABS: Activated Partial Thrombo Time 28.3 sec (23.4-31.7); INR 1.1 Ratio; Prothrombin Time 11.4 sec (9.8-11.6)
[2018-04-10 09:07] LABS: Alanine Aminotransferase 13 U/L (10-53); Aspartate Aminotransferase 14 U/L (15-37); Glomerular Filtration Rate 24 mL/min (>89)
[2018-04-10 09:08] LABS: Total Protein 6.8 g/dL (6.4-8.2)
[2018-04-10 09:10] LABS: Alkaline Phosphatase 62 U/L (45-117)
--- NOTE | 2018-04-10 09:22 | XR ---
EXAM DATE: 04/10/2018 9:01 AM EST AGE/SEX: 87 years / Female INDICATIONS: Syncopal episode with fall. CLINICAL DATA: This is the patient's initial encounter. Patient reports that signs and symptoms have been present for 1 day and indicates a pain score of 6/10. MEDICAL/SURGICAL HISTORY: Dementia. Thyroid disease. None. COMPARISON: [facility], XR CHEST PA AND LAT, 03/13/2018. . FINDINGS: A single AP view of the chest demonstrates the lungs to be symmetrically aerated without evidence of mass, infiltrate or effusion. The cardiomediastinal contours are unremarkable. Osseous structures a re intact. CONCLUSION: Stable chest without evidence of acute cardiopulmonary process. Electronically signed by: Ang Seals MD Board Certified Radiologist 04/10/2018 9:20 AM EST
[2018-04-10 10:09] LABS: Bilirubin,Urine Negative (Negative); Clarity,Urine Clear (Clear); Glucose,Urine (UA) Negative (Negative); Leukocyte Esterase,Urine Negative (Negative); Nitrite,Urine Negative (Negative); PH,Urine 5.5 (5.0-8.5); Urobilinogen,Urine 0.2 mg/dL (Less than 2)
[2018-04-10 10:21] LABS: Color,Urine Straw (Yellw/Straw)
[2018-04-10 10:44] LABS: Squamous Epithelial Cell,Urine 0-5 /hpf (0-5)
--- NOTE | 2018-04-10 15:13 | P.HPCC ---
History of Present Illness Primary Care Physician: Erlin Wynn MD History of Present Illness: 87-year-old female with this mechanical fall early in the morning. No loss of consciousness patient has been complaining of pain around the occipital area no neck pain. Patient is neurologically intact hemodynamically normal with awake and alert with baseline dementia-mental status is unchanged from her baseline. She is to transfer from [place] with a small subdural hematoma. Inpatient Certification: I certify that the inpatient services were ordered in accordance with Medicare regulations governing the order. This includes certification that hospital inpatient services are reasonable and necessary and in the case of services not specified as inpatient-only under 42 CFR 419.22(n), that they are appropriately provided as inpatient services in accordance to with the 2-midnight benchmark under 43 CFR 412.3(e) Estimated Total Length of Stay (Days): 2 Plans for Post Hospital Care: Home Review of Systems All other systems reviewed negative except as stated in HPI PMFSH - History History Provided By: Patient, Medical Record - Medical History Medical History: Medical History (Last Reviewed 04/10/18 @ 07:06 by Morena Hadley MD) Hx of thyroid disease Hx of vertigo - Tobacco History Second Hand Smoke Exposure: No Tobacco Use In Past 30 Days: No Smoking Status: Former smoker - Alcohol History How Often Do You Have a Drink Containing Alcohol: Never - Substance Use History Substance History: No History of Abuse - Travel History Recent Travel in the [place] Within the Last 8 Weeks: No Recent Travel Out of the Country Within the Last 8 Weeks: No - Immunization History Tetanus Immunization: Unsure Medications and Allergies Active Medications: Active Medications Amlodipine Besylate (Norvasc) 5 mg PO DAILY NARGIS Chlorhexidine Gluconate (Chlorhexidine 2% Cloth) 3 pack TOPICAL DAILY@0400 NARGIS Stop: 04/16/18 03:59 Chlorhexidine Gluconate (Chlorhexidine 2% Cloth) 3 pack TOPICAL DAILY@0400 PRN PRN Reason: Extra cloth needed Stop: 04/16/18 03:59 Docusate Sodium (Colace) 100 mg PO BID NARGIS Sodium Chloride (Ns Inj) 1,000 mls @ 50 mls/hr IV.CONT .Q20H NARGIS Acetaminophen (Ofirmev Inj) 1,000 mg in 100 mls @ 400 mls/hr IV.SIG Q6H PRN PRN Reason: PAIN SCALE 1 TO 10 Ondansetron HCl (Zofran Inj) 4 mg IV.PUSH Q6H PRN PRN Reason: NAUSEA OR VOMITING Sodium Chloride (Ns Flush) 2 ml IV.FLUSH UNSCH PRN PRN Reason: FLUSH AFTER USING IV ACCESS Allergies Allergy/AdvReac Type Severity Reaction Status Date / Time Sulfa (Sulfonamide Allergy Severe Hallucinations, Verified 04/10/18 06:32 Antibiotics) Elevated blood pressure *MDRO Multi-Drug Resistant AdvReac Unknown Anxiety Uncoded 04/10/18 06:32 Organism Home Medications Medication Instructions Recorded Confirmed Type levothyroxine [Synthroid] 50 mcg PO DAILY 04/10/18 04/10/18 History meclizine 25 mg PO 04/10/18 History Results - Labs CBC & Chem 7: 04/10/18 08:00 04/10/18 08:00 Labs: Short CBC 04/10/18 Range/Units 08:00 WBC 6.6 (4.0-11.0) th/mm3 Hgb 10.2 L (11.6-15.3) gm/dL Hct 32.5 L (35.0-46.0) % Plt Count 219 (150-450) th/mm3 BMP 04/10/18 08:00 Sodium 142 Potassium 4.9 Chloride 116 H Carbon Dioxide 19.8 L BUN 42 H Creatinine 2.00 H Calcium 8.3 L Cardiac Enzymes 04/10/18 Range/Units 08:00 Troponin I 0.05 (0.02-0.05) ng/mL Liver Function 04/10/18 Range/Units 08:00 Total Bilirubin 0.3 (0.2-1.0) mg/dL AST 14 L (15-37) U/L ALT 13 (10-53) U/L Alkaline Phosphatase 62 (45-117) U/L Albumin 3.2 L (3.4-5.0) g/dL Urine 04/10/18 Range/Units 09:40 Urine Color Straw (Yellw/Straw) Urine Clarity Clear (Clear) Urine pH 5.5 (5.0-8.5) Ur Specific [place] 1.020 (1.002-1.035) Urine Protein Negative (Neg-Trace) mg/dL Urine Glucose (UA) Negative (Negative) mg/dL - Imaging Impressions Head CT 04/10/18 06:55 CONCLUSION: 1. The examination demonstrates a small area of subdural hemorrhage along the petrous apex measuring a maximum of approximately 8 mm in thickness. There is no significant mass effect associated with this. This is new compared to the previous study of 02/24/2017. 2. Mild cortical atrophy. Chest X-Ray 04/10/18 08:27 CONCLUSION: Stable chest without evidence of acute cardiopulmonary process. Exam Vital signs: Vital Signs 04/10/18 06:28 04/10/18 06:50 04/10/18 07:18 Temperature 98.0 F 97.7 F Pulse Rate 73 78 66 Respiratory Rate 18 16 18 Blood Pressure 184/78 H 147/78 H 161/83 H Pulse Oximetry 98 97 95 04/10/18 11:06 04/10/18 11:07 04/10/18 11:11 Temperature 98.4 F Pulse Rate 66 69 68 Respiratory Rate 17 22 Blood Pressure 203/84 H 188/83 H Pulse Oximetry 87 L 99 04/10/18 11:30 Temperature Pulse Rate 68 Respiratory Rate 22 Blood Pressure 199/156 H Pulse Oximetry 99 Intake & Output 04/09/18 04/10/18 04/10/18 18:59 06:59 18:59 Weight 93 kg - Constitutional no acute distress, obese, cooperative - Routine HEENT Exam Head: Present: normocephalic, scalp tenderness Eye: Present: EOMI, PERRL, normal accommodation ENT: Present: mucous membranes moist - Routine Neck Exam Present: supple, full ROM - Routine Respiratory Exam Present: CTA bilaterally - Routine Cardiovascular Exam Present: RRR - Routine Abdominal Exam Present: soft, normoactive bowel sounds - Routine Extremities Exam Present: full ROM, normal capillary refill - Routine Skin Exam Present: intact - Routine Neurological Exam Present: alert, moving all extremities, hearing grossly intact, normal speech Caprini VTE Risk Assessment Caprini VTE Risk Assessment: Moderate/High Risk (score >= 2) (tr) VTE Pharmacological Exception Reason: High risk for bleeding (trauma) Caprini Risk Assessment Model: Point Value = 1 Point Value = 2 Point Value = 3 Point Value = 5 Age 41-60 Minor surgery BMI > 25 kg/m2 Swollen legs Varicose veins or History of unexplained or recurrent spontaneous Oral contraceptives or hormone replacement Sepsis (< 1 month) Serious lung disease, including pneumonia (< 1 month) Abnormal pulmonary function Acute myocardial infarction Congestive heart failure (< 1 month) History of inflammatory bowel disease Medical patient at bed rest Age 61-74 Arthroscopic surgery Major open surgery (> 45 min) Laparoscopic surgery (> 45 min) Malignancy Confined to bed (> 72 hours) Immobilizing plaster cast Central venous access Age >= 75 History of VTE Family history of VTE Factor V Leiden Prothrombin 25132H Lupus anticoagulant Anticardiolipin antibodies Elevated serum homocysteine Heparin-induced thrombocytopenia Other congenital or acquired thrombophilia Stroke (< 1 month) Elective arthroplasty Hip, pelvis, or leg fracture Acute spinal cord injury (< 1 month) Prophylaxis Regimen: Total Risk Factor Score Risk Level Prophylaxis Regimen 0-1 Low Early ambulation 2 Moderate Order ONE of the following: *Sequential Compression Device (SCD) *Heparin 5000 units SQ BID 3-4 Higher Order ONE of the following medications: *Heparin 5000 units SQ TID *Enoxaparin/Lovenox 40 mg SQ daily (WT < 150 kg, CrCl > 30 mL/min) *Enoxaparin/Lovenox 30 mg SQ daily (WT < 150 kg, CrCl > 10-29 mL/min) *Enoxaparin/Lovenox 30 mg SQ BID (WT < 150 kg, CrCl > 30 mL/min) AND/OR *Sequential Compression Device (SCD) 5 or more Highest Order ONE of the following medications: *Heparin 5000 units SQ TID (Preferred with Epidurals) *Enoxaparin/Lovenox 40 mg SQ daily (WT < 150 kg, CrCl > 30 mL/min) *Enoxaparin/Lovenox 30 mg SQ daily (WT < 150 kg, CrCl > 10-29 mL/min) *Enoxaparin/Lovenox 30 mg SQ BID (WT < 150 kg, CrCl > 30 mL/min) AND *Sequential Compression Device (SCD) Assessment and Plan - Assessment and Plan Plan: Subdural hematoma Baseline mental status Admit to ICU Neurochecks BP less than 160 mmHg Pain control Repeat CT of the head Neurosurgery consult
[2018-04-10] MEDS: Sod Chloride 0.9% Inj 1,000 ML IV.CONT SCH (15:56)
[2018-04-10] MEDS: amLODIPine 5 MG Tablet PO SCH (15:56)
--- NOTE | 2018-04-10 17:17 | MB ---
cc: Ulysses Jackson MD DATE: 04/10/2018 Report of initial comprehensive inpatient intensive care unit trauma neurosurgical consultation. The patient was interviewed, examined, the documentation, laboratory evaluation, and imaging were reviewed. CHIEF COMPLAINT: Fall and a head injury. HISTORY OF PRESENT ILLNESS: This is an 87-year-old apparently right-handed retired white female who apparently slipped and fell after suffering a vertiginous episode. She struck her head, but denies loss of consciousness. She denies any neck or back pain. She also describes some pain over her occipital region of her scalp. In any case, the patient denies any loss of consciousness. She does admit to having a mild headache. In any case, CT scan of the head without contrast was obtained in the outlying hospital, which reveals small left tentorial subdural hematoma. There is no mass effect. The patient's [place] coma scale has remained 15. PAST MEDICAL HISTORY: Remarkable for history of progressive dementia, vertigo, hypothyroidism. PAST SURGICAL HISTORY: Remarkable for 2 sections, as well as a hysterectomy, cholecystectomy, and thyroidectomy. MEDICATIONS: 1. Synthroid. 2. Meclizine. ALLERGIES: SHE HAS NO KNOWN ALLERGIES. SOCIAL HISTORY: She is retired. She lives with her . There is no recent history of cigarette smoking, ethanol abuse, or illicit drug use. FAMILY HISTORY: Remarkable for history of Alzheimer's dementia and cancer. REVIEW OF SYSTEMS: She denies any weight change. She denies any fever, chills or night sweats. She admits to a headache because of the fall. She does not have headaches. She denies any change in her vision or hearing. She denies any change in her thinking or memory or speech or swallowing or chest pain or shortness of breath or abdominal pain. She denies any change in bowel or bladder function or characteristics of her urine or stool. She denies any rash, itching, or easy bruising. She admits to some anxiety. Apparently also she suffers with urinary incontinence. This was according to her . NEUROLOGIC EXAMINATION: VITAL SIGNS: Her temperature is 98.4, heart rate 68, respiratory rate is 22. Her blood pressure is 188/83 and her SpO2 was 99% on room air. Mental status testing finds the patient to be awake and alert. She is oriented x2. Her speech is fluent. She is somewhat confused. She has difficulty with recent and remote recall. Cranial nerve testing finds her pupils to be equally round and reactive to light. Extraocular movements were full, without diplopia nor nystagmus. Corneal reflexes were present bilaterally. Face was symmetric. Hearing was intact. Gag reflex was present. Motor examination found bulk and tone to be within normal limits. Power testing was 5+/5+ throughout. Sensory examination was intact to light touch and position throughout. Deep tendon reflexes were 1-2+ and symmetric with diminished ankle jerks. There were no pathological reflexes noted. Cerebellar testing found no dysmetria. Fine coordination was grossly intact. There was no gross truncal nor appendicular ataxia noted. Gait, Romberg and tandem were not tested. Her head was normocephalic. There was an occipital scalp contusion abrasion. There was no Rodriguez sign, no raccoon eyes. No mastoid tenderness. There was no blood within external auditory canals or sign of CSF, otorrhea, or rhinorrhea. Cervical spine evaluation revealed no real pain to palpation with mild limited range of motion. There was no pain to palpation of her thoracic or lumbosacral spine. Pulses were 4+ present and symmetrical throughout. IMPRESSION: My impression is that the patient has suffered a slip and fall from a vertiginous episode. She has a long history of chronic intermittent vertigo. This has resulted in a mild closed blunt head injury with a traumatic brain injury with a small left tentorial subdural hematoma. This is in a patient who suffers with progressive dementia. RECOMMENDATIONS: Certainly a conservative neurosurgical approach is warranted. A followup CT scan has been ordered for early tomorrow morning. I would not initiate Keppra antiseizure prophylaxis. The patient needs to be mobilized and probably will be stable for discharge in the morning. I will be happy to follow along and discuss. Thank you for allowing me to participate in the care of this patient. MD MANE Bradley/manny , 04:31 PM , 04:43 PM
[2018-04-10] MEDS ORDERED: hydrALAZINE HCl Inj 20 MG/ML Vial IV.PUSH PRN (20:13)
[2018-04-10] MEDS: Docusate Sodium 100 MG Capsule PO SCH (20:28)
[2018-04-11] MEDS: Chlorhexidine Gluconate 2% 1 Pack (2 Cloths) TOPICAL SCH (03:13)
[2018-04-11] MEDS ORDERED: Chlorhexidine Gluconate 2% 1 Pack (2 Cloths) TOPICAL PRN (04:00)
--- NOTE | 2018-04-11 04:24 | CT ---
EXAM DATE: 04/11/2018 4:15 AM EST AGE/SEX: 87 years / Female INDICATIONS: Cephalgia. Follow up subdural hematoma. CLINICAL DATA: This is the patient's subsequent encounter. Patient reports that signs and symptoms h ave been present for 2 days and indicates a pain score of 4/10. MEDICAL/SURGICAL HISTORY: . Vertigo. None. RADIATION DOSE: 56.35 CTDI (mGy) COMPARISON: [facility], CT HEAD W/O CONTRAST, 04/10/2018. . TECHNIQUE: CT of the head without contrast. Using automated exposure control and adjustment of the mA and/or kV according to patient size, radiation dose was kept as low as reasonably achievable to ob tain optimal diagnostic quality images. DICOM format image data is available electronically for revi ew and comparison. FINDINGS: Cerebrum: The ventricles are normal for age with mild to moderate atrophic change. No evidence of mi dline shift, mass lesion or acute infarction. The small high density extra-axial hemorrhage along the left petrous ridge is unchanged. No extraaxial fluid collections are seen. Posterior Fossa: The cerebellum and brainstem are intact. The 4th ventricle is midline. The cerebe llopontine angle is unremarkable. Extracranial: The visualized portion of the orbits is intact. Skull: The calvaria is intact. No evidence of skull fracture. CONCLUSION: 1. Stable appearance of the small high density extra-axial hemorrhage along the left petrous ridge. . Electronically signed by: Jacky Zamorano MD Board Certified Radiologist 04/11/2018 4:23 AM EST
[2018-04-11 06:03] LABS: Baso % (Auto) 0.4 % (0.0-2.0); Eos # (Auto) 0.2 th/mm3 (0.0-0.4); Eos % (Auto) 2.1 % (0.0-4.0); Hematocrit 32.5 % (35.0-46.0); Hemoglobin 10.6 gm/dL (11.6-15.3); Lymph # (Auto) 0.9 th/mm3 (1.0-4.8); Lymph % (Auto) 11.8 % (9.0-44.0); Mean Corpuscular HGB Conc 32.6 % (32.0-36.0); Mean Corpuscular Hemoglobin 32.3 pg (27.0-34.0); Mean Corpuscular Volume 98.9 fL (80.0-100.0); Mean Platelet Volume 7.9 fL (7.0-11.0); Mono # (Auto) 0.5 th/mm3 (0.0-0.9); Mono % (Auto) 6.3 % (0.0-8.0); Neut # (Auto) 6.2 th/mm3 (1.8-7.7); Neut % (Auto) 79.4 % (16.0-70.0); Platelet Count 192 th/mm3 (150-450); Red Blood Count 3.28 mil/mm3 (4.00-5.30); Red Cell Distribution Width 14.4 % (11.6-17.2); White Blood Count 7.8 th/mm3 (4.0-11.0)
[2018-04-11 06:14] LABS: INR 1.1 Ratio; Prothrombin Time 11.6 sec (9.8-11.6)
[2018-04-11 06:33] LABS: Calcium 8.3 mg/dL (8.5-10.1); Carbon Dioxide 19.8 meq/L (21.0-32.0); Potassium 5.3 meq/L (3.5-5.1)
[2018-04-11] MEDS: Levothyroxine 50 MCG Tablet PO SCH (06:37)
[2018-04-11] MEDS: amLODIPine 5 MG Tablet PO SCH (08:24)
[2018-04-11] MEDS: Famotidine 20 MG Tablet PO SCH ×2 (08:24→20:31)
[2018-04-11] MEDS: Docusate Sodium 100 MG Capsule PO SCH ×2 (08:24→20:31)
--- NOTE | 2018-04-11 08:29 | P.NPEVAL ---
Patient History - Record/History Review Reason for Referral: The patient is a 87 year old presumed right handed woman status post complicated mild traumatic brain injury secondary to a mechanical fall sustained on 04/10/2018. Head CT showed small SDH and mild atrophy. She is referred for baseline neurobehavioral status examination per trauma protocol to assess cognitive, behavioral and emotional aspects of the injury and to provide treatment recommendations. PMFSH - History History Provided By: Patient, Medical Record - Medical History Medical History: Medical History (Last Reviewed 04/11/18 @ 08:15 by Jama Zambrano) H/O: hysterectomy Hx of thyroid disease Hx of vertigo - Surgical History Surgical History: Surgical History (Last Reviewed 04/11/18 @ 08:15 by Jama Zambrano) H/O thyroidectomy History of back surgery Hx of section Hx of cholecystectomy - Tobacco History Second Hand Smoke Exposure: No Tobacco Use In Past 30 Days: No Smoking Status: Former smoker - Alcohol History How Often Do You Have a Drink Containing Alcohol: Never - Substance Use History Substance History: No History of Abuse - Travel History Recent Travel in the [place] Within the Last 8 Weeks: No Recent Travel Out of the Country Within the Last 8 Weeks: No - Immunization History Tetanus Immunization: Unsure Hx Influenza Vaccine This Season: Yes Medications Active Medications Al Hydroxide/Mg Hydroxide (Milk Of Dre Munguia) 30 ml PO BID [facility] Amlodipine Besylate (Norvasc) 5 mg PO DAILY [facility] Last Admin: 04/10/18 15:56 Dose: 5 mg Chlorhexidine Gluconate (Chlorhexidine 2% Cloth) 3 pack TOPICAL DAILY@0400 NARGIS Stop: 04/16/18 03:59 Last Admin: 04/11/18 03:13 Dose: 3 pack Chlorhexidine Gluconate (Chlorhexidine 2% Cloth) 3 pack TOPICAL DAILY@0400 PRN PRN Reason: Extra cloth needed Stop: 04/16/18 03:59 Docusate Sodium (Colace) 100 mg PO BID [facility] Last Admin: 04/10/18 20:28 Dose: 100 mg Famotidine (Pepcid) 20 mg PO BID [facility] Hydralazine HCl (Apresoline Inj) 20 mg IV.PUSH Q2H PRN PRN Reason: SYSTOLIC BP > 160 Last Admin: 04/10/18 23:51 Dose: 20 mg Sodium Chloride (Ns Inj) 1,000 mls @ 50 mls/hr IV.CONT .Q20H [facility] Last Admin: 04/10/18 15:56 Dose: 50 mls/hr Acetaminophen (Ofirmev Inj) 1,000 mg in 100 mls @ 400 mls/hr IV.SIG Q6H PRN PRN Reason: PAIN SCALE 1 TO 10 Last Admin: 04/10/18 15:55 Dose: 400 mls/hr Levothyroxine Sodium (Synthroid) 50 mcg PO DAILY@0600 [facility] Last Admin: 04/11/18 06:37 Dose: 50 mcg Ondansetron HCl (Zofran Inj) 4 mg IV.PUSH Q6H PRN PRN Reason: NAUSEA OR VOMITING Sodium Chloride (Ns Flush) 2 ml IV.FLUSH UNSCH PRN PRN Reason: FLUSH AFTER USING IV ACCESS Mental Status Assessment - Mental Status Absent: Hallucinations, Delusions Adjustment/Coping Assessment - Adjustment/Coping Adjustment/Coping: Mild: Awareness, Insight - Observation In terms of emotional functioning, the patient demonstrated challenges. This patient demonstrated no signs of agitation, impulsivity or disinhibition, nor was there remarkable evidence of a formal thought disorder or psychosis. There was no evidence of depression or anxiety. Thought content was free from suicidal, homicidal or paranoid ideation, and thought processes were logical but bradyphrenic. The patients mood was euthymic, and her affect was stable and appropriate. The patient appears to possess diminished insight and awareness into their situation and within the limits of this brief evaluation, diminished judgment. - Goals/Team Members LTG Status: Deferred STG Status: Deferred Team Members: Neuropsychologist Behavior - Behavior Treatment Engagement: Minimal - Observation Behaviorally, the patient demonstrated no signs of agitation, impulsivity or disinhibition. There was no remarkable evidence of a formal thought disorder or psychosis. 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 [facility] Level: Level V Disinhibition Score: 14.00 Aggression Score: 14.00 Lability Score: 14.00 Agitated Behavior Total Score: 14 Maximizing Acute Care Outcome: It is recommended that the patient be monitored for emergent behavioral impulsivity as the medical condition evolves. This patients neuropathological challenges may limit rehabilitation potential going forward, and these challenges will require specialized therapeutic skills to maximize outcome. Additionally, the patients family is experiencing ongoing issues of adjustment given the traumatic nature of the injury, and they may benefit from ongoing psychological assistance. At this point in the recovery process, the patient may not have cognitive capacity as the patient has questionable ability to understand a situation and its likely consequences, along with concerns that this patient has limited ability to manipulate information rationally. Cognitive capacity will be assessed throughout the recovery process. - Discharge Planning Anticipated Problems: Ongoing areas of concern will include behavioral impulsivity, lack of insight and judgment, which is expected to improve with time and treatment. Treatment Plan: This clinician will continue to follow with you throughout the course of this patients critical care treatment, and I will be available to meet with the patients family/support system to facilitate their understanding and the ongoing care of their family member. The goals of neuropsychological intervention shall be both educational and supportive to the family/support system as is deemed clinically appropriate. Thank you for the opportunity to assist in this patients care. Sam German, Ph.D., ABPP Board Certified in Clinical Neuropsychology [employer] [place] Licensed Psychologist #[id number]
[2018-04-11] MEDS: Sod Chloride 0.9% Inj 1,000 ML IV.CONT SCH (11:16)
--- NOTE | 2018-04-11 13:28 | US ---
EXAM DATE: 04/11/2018 1:14 PM EST AGE/SEX: 87 years / Female INDICATIONS: Syncope. Trama, fall 04/10/17. CLINICAL DATA: This is the patient's subsequent encounter. Patient reports that signs and symptoms h ave been present for 1 day and indicates a pain score of 0/10. MEDICAL/SURGICAL HISTORY: . Vertigo. Thyroid disease. Hysterectomy. section. Cholec ystectomy. Back surgery. COMPARISON: [facility], US CAROTID ARTERIES, 09/12/2010. . VELOCITY PARAMETERS: ICA/CCA Ratio: Right 1.7 , Left 1.3 ICA: Right 112 cm/sec, Left 109 cm/sec CCA: Right 64 cm/sec, Left 87 cm/sec ECA: Right 82 cm/sec, Left 77 cm/sec Vertebral: Right 67 cm/sec antegrade, Left 85 cm/sec antegrade FINDINGS: Right Carotid: Mild arteriosclerotic plaque is visualized.The waveforms are within normal limits. Left Carotid: Mild arteriosclerotic plaque is visualized. The waveforms are within normal limits. Other: None. CONCLUSION: 1. Right Internal Carotid Artery: Findings indicate <50% stenosis. 2. Left Internal Carotid Artery: Findings indicate <50% stenosis. Electronically signed by: Donnie Guardado MD Board Certified Radiologist 04/11/2018 1:26 PM EST
--- NOTE | 2018-04-11 13:46 | ECG ---
Date Performed: 04/10/2018 Time Performed: 08:28:18 PTAGE: 87 years EKG: Sinus rhythm MARKED LEFT AXIS DEVIATION LOW QRS VOLTAGE IN PRECORDIAL LEADS POSSIBLE ANTERIOR MYOCARDIAL INFARCTI ON Since the previous tracing, no significant change noted ABNORMAL ECG PREVIOUS TRACING : 03/09/2017 12.03 DOCTOR: Seymour Bauer Interpretating Date/Time 04/11/2018 13:34:51
--- NOTE | 2018-04-11 16:02 | P.PNNS ---
Subjective Interval history: April 11, 2018 The patient has been stable overnight. She has no complaints. She denies any headache. Physical Exam Vital signs: Vital Signs 04/10/18 16:00 04/10/18 17:00 04/10/18 18:00 Temperature 97.9 F Pulse Rate 56 L 59 L 79 Respiratory Rate 21 23 28 H Blood Pressure 183/75 H 165/69 H 178/81 H Pulse Oximetry 99 99 04/10/18 19:00 04/10/18 19:39 04/10/18 20:00 Temperature 97.4 F L Pulse Rate 68 70 66 Respiratory Rate 31 H 24 23 Blood Pressure 192/77 H 141/64 H Pulse Oximetry 98 97 04/10/18 20:28 04/10/18 20:36 04/10/18 21:00 Temperature Pulse Rate 67 64 61 Respiratory Rate 26 H 22 21 Blood Pressure 154/65 H Pulse Oximetry 97 97 04/10/18 21:31 04/10/18 22:00 04/10/18 22:24 Temperature Pulse Rate 66 59 L 68 Respiratory Rate 27 H 20 25 H Blood Pressure 142/65 H 138/96 H Pulse Oximetry 95 04/10/18 23:00 04/10/18 23:20 04/10/18 23:44 Temperature Pulse Rate 63 67 75 Respiratory Rate 23 24 27 H Blood Pressure 164/81 H Pulse Oximetry 95 97 04/10/18 23:46 04/11/18 00:00 04/11/18 00:20 Temperature 97.5 F L Pulse Rate 68 78 82 Respiratory Rate 22 22 23 Blood Pressure 162/73 H 135/62 Pulse Oximetry 97 98 96 04/11/18 01:00 04/11/18 01:26 04/11/18 02:00 Temperature Pulse Rate 79 88 76 Respiratory Rate 20 27 H 19 Blood Pressure 142/61 H 142/61 H Pulse Oximetry 96 95 04/11/18 02:20 04/11/18 03:00 04/11/18 03:58 Temperature Pulse Rate 74 76 71 Respiratory Rate 20 23 19 Blood Pressure 132/56 L 138/72 Pulse Oximetry 96 99 04/11/18 04:00 04/11/18 04:20 04/11/18 04:22 Temperature 97.8 F Pulse Rate 79 76 75 Respiratory Rate 21 21 Blood Pressure 157/67 H Pulse Oximetry 98 98 98 04/11/18 05:00 04/11/18 05:20 04/11/18 06:00 Temperature Pulse Rate 71 69 72 Respiratory Rate 25 H 18 20 Blood Pressure Pulse Oximetry 97 97 97 04/11/18 06:20 04/11/18 07:00 04/11/18 07:20 Temperature Pulse Rate 72 85 Respiratory Rate 21 18 Blood Pressure 147/115 H 149/67 H Pulse Oximetry 99 96 04/11/18 07:52 04/11/18 08:00 04/11/18 08:20 Temperature 97.7 F Pulse Rate 75 75 Respiratory Rate 23 Blood Pressure 158/68 H Pulse Oximetry 96 04/11/18 09:03 04/11/18 10:00 04/11/18 10:20 Temperature Pulse Rate 72 110 H 110 H Respiratory Rate 21 20 Blood Pressure 182/78 H 130/69 Pulse Oximetry 96 04/11/18 11:00 04/11/18 11:53 04/11/18 12:00 Temperature 97.8 F Pulse Rate 103 H 90 76 Respiratory Rate 22 21 Blood Pressure 139/63 Pulse Oximetry 96 94 L 04/11/18 12:41 04/11/18 13:00 04/11/18 14:00 Temperature Pulse Rate 68 98 H Respiratory Rate 25 H 28 H Blood Pressure 123/53 L 153/71 H Pulse Oximetry 97 Intake & Output 04/10/18 04/11/18 04/11/18 18:59 06:59 18:59 Intake Total 240 / 240 500 / 500 Output Total 1200 / 1200 400 / 400 Balance -960 / -960 100 / 100 Weight 88.3 kg 88.3 kg Intake: IV 500 / 500 NS Inj 1,000 ML @ 50 mls/hr IV. 500 / 500 CONT .Q20H [facility] Rx#:[id number] Oral 240 / 240 Output: Urine Amount (Catheter) 1200 / 1200 400 / 400 Indwelling Urethral Catheter 1200 / 1200 400 / 400 Other: Date of Last Bowel Movement 04/11/18 Weight On Admission 88.3 kg - Routine Neurological Exam April 26, 2018 The patient is sitting up in a chair as I enter the room. She is in no acute distress. Her is in the room. On neurological examination, mental status testing finds her to be awake and alert. She is oriented by 2. Her speech is fluent. She is mildly confused which is unchanged. Cranial nerve testing 2 through 12 is grossly intact. There were no focal motor nor sensory deficits. She is amatory with a walker and continent of bowel. She is incontinent of urine at times. Cervical spine evaluation relatively full range of motion without pain to palpation. Follow-up CT scan is unchanged. There is generalized atrophy left tentorial subdural hematoma without significant mass-effect or increase in size. There is no skull fracture or pneumocephalus noted. There is no hydrocephalus. Patient also underwent bilateral carotid Dopplers which revealed no significant stenosis. - Urinary Catheter Management Indwelling Urethral Catheter Cath placed during this visit: yes, but has since been removed by the nurse Reason for continuing: Decision to DC catheter Insertion date: 04/10/18 Insertion time: 09:40 Removal date: 04/11/18 Removal time: 11:00 Assessment and Plan - Plan April 11, 2018 Patient is stable following a mild closed head injury with traumatic brain injury after a fall following an episode of vertigo. She suffers with a very small left tentorial subdural hematoma which is remained stable on serial imaging. From a neurosurgical perspective the patient is stable for discharge. She is to follow-up in the neurosurgery clinic in 2-3 weeks and just prior to that follow-up she should undergo an outpatient CT scan of the head without contrast. I discussed this all with the patient and her and they understand and are agreeable. Neurosurgery will sign off.
--- NOTE | 2018-04-11 16:31 | P.CONREH ---
History of Present Illness Service: Physical medicine rehabilitation Consult date: 04/11/18 Reason for Consult: Comprehensive rehabilitation evaluation Primary Care Provider: Erlin Wynn MD History of Present Illness: Jaylene Nelson is an 87-year-old [id number] female admitted to [facility] 04/10/18 after a fall at home. Initial head CT showed small area of subdural hematoma along the petrous apex measuring a maximum of 8 mm in thickness. No significant mass-effect was noted. She was also noted to have mild cortical atrophy. There was no loss of consciousness noted. Carotid ultrasound was negative for hemodynamically significant stenosis. Follow-up head CT 04/16/18 shows stable appearance of high small density extraocular hemorrhage along the left petrous ridge. Review of Systems Constitutional: Denies fatigue Eyes: Denies double vision Ears, Nose, Mouth, and Throat: Denies abnormal hearing, Denies headache(s) Cardiovascular: Denies chest pain, Denies lightheadedness Respiratory: Denies shortness of breath Gastrointestinal: Denies abdominal pain Genitourinary: Denies urinary incontinence, Denies urinary urgency Musculoskeletal: Denies muscle weakness, Denies radiating pain into limb Skin/Breast: Denies rash Neurologic: Denies tingling/numbness/burning sensations Psychiatric: Denies confusion Hematologic/Lymphatic: Denies easy bruising Allergic/Immunologic: Denies lip swelling PMFSH - History History Provided By: Patient, Medical Record - Medical History Medical History: Medical History (Last Reviewed 04/11/18 @ 16:26 by Ruth Lund MD) H/O: hysterectomy Hx of thyroid disease Hx of vertigo - Surgical History Surgical History: Surgical History (Last Reviewed 04/11/18 @ 16:26 by Ruth Lund MD) H/O thyroidectomy History of back surgery Hx of section Hx of cholecystectomy - Tobacco History Second Hand Smoke Exposure: No Tobacco Use In Past 30 Days: No Smoking Status: Former smoker - Alcohol History How Often Do You Have a Drink Containing Alcohol: Never - Substance Use History Substance History: No History of Abuse - Travel History Recent Travel in the [facility] Within the Last 8 Weeks: No Recent Travel Out of the Country Within the Last 8 Weeks: No - Immunization History Tetanus Immunization: Unsure Hx Influenza Vaccine This Season: Yes Medications and Allergies Active Medications: Active Medications Al Hydroxide/Mg Hydroxide (Milk Of Magnesia Liq) 30 ml PO BID NARGIS Last Admin: 04/11/18 08:24 Dose: 30 ml Amlodipine Besylate (Norvasc) 5 mg PO DAILY [facility] Last Admin: 04/11/18 08:24 Dose: 5 mg Chlorhexidine Gluconate (Chlorhexidine 2% Cloth) 3 pack TOPICAL DAILY@0400 [facility] Stop: 04/16/18 03:59 Last Admin: 04/11/18 03:13 Dose: 3 pack Chlorhexidine Gluconate (Chlorhexidine 2% Cloth) 3 pack TOPICAL DAILY@0400 PRN PRN Reason: Extra cloth needed Stop: 04/16/18 03:59 Docusate Sodium (Colace) 100 mg PO BID [facility] Last Admin: 04/11/18 08:24 Dose: 100 mg Famotidine (Pepcid) 20 mg PO BID [facility] Last Admin: 04/11/18 08:24 Dose: 20 mg Hydralazine HCl (Apresoline Inj) 20 mg IV.PUSH Q2H PRN PRN Reason: SYSTOLIC BP > 160 Last Admin: 04/10/18 23:51 Dose: 20 mg Sodium Chloride (Ns Inj) 1,000 mls @ 50 mls/hr IV.CONT .Q20H [facility] Last Admin: 04/11/18 11:16 Dose: Not Given Acetaminophen (Ofirmev Inj) 1,000 mg in 100 mls @ 400 mls/hr IV.SIG Q6H PRN PRN Reason: PAIN SCALE 1 TO 10 Last Admin: 04/10/18 15:55 Dose: 400 mls/hr Levothyroxine Sodium (Synthroid) 50 mcg PO DAILY@0600 [facility] Last Admin: 04/11/18 06:37 Dose: 50 mcg Ondansetron HCl (Zofran Inj) 4 mg IV.PUSH Q6H PRN PRN Reason: NAUSEA OR VOMITING Sodium Chloride (Ns Flush) 2 ml IV.FLUSH UNSCH PRN PRN Reason: FLUSH AFTER USING IV ACCESS Allergies Allergy/AdvReac Type Severity Reaction Status Date / Time Sulfa (Sulfonamide Allergy Severe Hallucinations, Verified 04/10/18 06:32 Antibiotics) Elevated blood pressure *MDRO Multi-Drug Resistant AdvReac Unknown Anxiety Uncoded 04/10/18 06:32 Organism Home Medications Medication Instructions Recorded Confirmed Type aspirin 81 mg PO DAILY 04/10/18 04/10/18 History candesartan-hydrochlorothiazid 1 tab PO DAILY 04/10/18 04/10/18 History [Atacand HCT] dimenhydrinate [Dramamine] 25 mg PO Q6-8H PRN 04/10/18 04/10/18 History levothyroxine [Synthroid] 50 mcg PO DAILY 04/10/18 04/10/18 History Exam - Physical Examination Vital Signs / I&O: Vital Signs 04/10/18 17:00 04/10/18 18:00 04/10/18 19:00 Temperature Pulse Rate 59 L 79 68 Respiratory Rate 23 28 H 31 H Blood Pressure 165/69 H 178/81 H Pulse Oximetry 99 04/10/18 19:39 04/10/18 20:00 04/10/18 20:28 Temperature 97.4 F L Pulse Rate 70 66 67 Respiratory Rate 24 23 26 H Blood Pressure 192/77 H 141/64 H Pulse Oximetry 98 97 04/10/18 20:36 04/10/18 21:00 04/10/18 21:31 Temperature Pulse Rate 64 61 66 Respiratory Rate 22 21 27 H Blood Pressure 154/65 H 142/65 H Pulse Oximetry 97 97 04/10/18 22:00 04/10/18 22:24 04/10/18 23:00 Temperature Pulse Rate 59 L 68 63 Respiratory Rate 20 25 H 23 Blood Pressure 138/96 H Pulse Oximetry 95 95 04/10/18 23:20 04/10/18 23:44 04/10/18 23:46 Temperature Pulse Rate 67 75 68 Respiratory Rate 24 27 H 22 Blood Pressure 164/81 H 162/73 H Pulse Oximetry 97 97 04/11/18 00:00 04/11/18 00:20 04/11/18 01:00 Temperature 97.5 F L Pulse Rate 78 82 79 Respiratory Rate 22 23 20 Blood Pressure 135/62 Pulse Oximetry 98 96 96 04/11/18 01:26 04/11/18 02:00 04/11/18 02:20 Temperature Pulse Rate 88 76 74 Respiratory Rate 27 H 19 20 Blood Pressure 142/61 H 142/61 H 132/56 L Pulse Oximetry 95 96 04/11/18 03:00 04/11/18 03:58 04/11/18 04:00 Temperature 97.8 F Pulse Rate 76 71 79 Respiratory Rate 23 19 21 Blood Pressure 138/72 Pulse Oximetry 99 98 04/11/18 04:20 04/11/18 04:22 04/11/18 05:00 Temperature Pulse Rate 76 75 71 Respiratory Rate 21 25 H Blood Pressure 157/67 H Pulse Oximetry 98 98 97 04/11/18 05:20 04/11/18 06:00 04/11/18 06:20 Temperature Pulse Rate 69 72 72 Respiratory Rate 18 20 21 Blood Pressure 147/115 H Pulse Oximetry 97 97 99 04/11/18 07:00 04/11/18 07:20 04/11/18 07:52 Temperature Pulse Rate 85 75 Respiratory Rate 18 Blood Pressure 149/67 H Pulse Oximetry 96 04/11/18 08:00 04/11/18 08:20 04/11/18 09:03 Temperature 97.7 F Pulse Rate 75 72 Respiratory Rate 23 21 Blood Pressure 158/68 H 182/78 H Pulse Oximetry 96 96 04/11/18 10:00 04/11/18 10:20 04/11/18 11:00 Temperature Pulse Rate 110 H 110 H 103 H Respiratory Rate 20 22 Blood Pressure 130/69 Pulse Oximetry 04/11/18 11:53 04/11/18 12:00 04/11/18 12:41 Temperature 97.8 F Pulse Rate 90 76 Respiratory Rate 21 Blood Pressure 139/63 123/53 L Pulse Oximetry 96 94 L 04/11/18 13:00 04/11/18 14:00 04/11/18 14:35 Temperature Pulse Rate 68 98 H Respiratory Rate 25 H 28 H Blood Pressure 153/71 H 153/71 H Pulse Oximetry 97 04/11/18 15:45 04/11/18 16:00 Temperature Pulse Rate 97 H 90 Respiratory Rate 22 23 Blood Pressure 152/71 H Pulse Oximetry 98 98 Intake & Output 04/10/18 04/11/18 04/11/18 18:59 06:59 18:59 Intake Total 240 / 240 500 / 500 Output Total 1200 / 1200 400 / 400 Balance -960 / -960 100 / 100 Weight 88.3 kg 88.3 kg Intake: IV 500 / 500 NS Inj 1,000 ML @ 50 mls/hr IV. 500 / 500 CONT .Q20H [facility] Rx#:[id number] Oral 240 / 240 Output: Urine Amount (Catheter) 1200 / 1200 400 / 400 Indwelling Urethral Catheter 1200 / 1200 400 / 400 Other: Date of Last Bowel Movement 04/11/18 Weight On Admission 88.3 kg Intake & Output 04/09/18 04/10/18 04/11/18 04/12/18 06:59 06:59 06:59 06:59 Intake Total 240 / 240 500 / 500 Output Total 1200 / 1200 400 / 400 Balance -960 / -960 100 / 100 Weight 93 kg 88.3 kg 88.3 kg General: No acute distress, Other (Awake and alert; at bedside.) Respiratory: Lungs CTA, Non-labored respirations, BS equal Gastrointestinal: Positive bowel sounds, Non-distended, Non-tender Date of Last Bowel Movement: 04/11/18 Cardiovascular: Normal rate, Regular rhythm Skin: No rash Musculoskeletal: ROM (Within normal limits) Psychiatric: Cooperative, Appropriate mood & affect - Neurologic Orientation: oriented to: Self, Place, Time, Situation Neurologic: Cranial nerves (Intact 2 through 12), Facial symmetry (Symmetric), Speech (Intelligible) Motor: Right Upper Extremity (4+/5), Left Upper Extremity (4+/5), Right Lower Extremity (4+/5), Left Lower Extremity (4+/5) Sensory: Intact light touch in both upper and lower extremities DTRs: Normal Babinski: Negative Clonus: Negative Results - Labs CBC & Chem 7: 04/11/18 05:17 04/11/18 05:17 Labs: Laboratory Results - last 24 hr 04/11/18 04/11/18 04/11/18 00:01 05:17 05:17 WBC 7.8 RBC 3.28 L Hgb 10.6 L Hct 32.5 L MCV 98.9 MCH 32.3 MCHC 32.6 RDW 14.4 Plt Count 192 MPV 7.9 Neut % (Auto) 79.4 H Lymph % (Auto) 11.8 [place] % (Auto) 6.3 Eos % (Auto) 2.1 Baso % (Auto) 0.4 Neut # (Auto) 6.2 Lymph # (Auto) 0.9 L [place] # (Auto) 0.5 Eos # (Auto) 0.2 Baso # (Auto) 0.0 WBC Differential . Differential Comment Auto diff final PT 11.6 INR 1.1 Sodium Potassium Chloride Carbon Dioxide Anion Gap BUN Creatinine Estimated GFR Random Glucose Calcium Nasal Screen MRSA (PCR) Not detected 04/11/18 05:17 WBC RBC Hgb Hct MCV MCH MCHC RDW Plt Count MPV Neut % (Auto) Lymph % (Auto) [place] % (Auto) Eos % (Auto) Baso % (Auto) Neut # (Auto) Lymph # (Auto) [place] # (Auto) Eos # (Auto) Baso # (Auto) WBC Differential Differential Comment PT INR Sodium 143 Potassium 5.3 H Chloride 116 H Carbon Dioxide 19.8 L Anion Gap 7 BUN 34 H Creatinine 1.69 H Estimated GFR 29 L Random Glucose 88 Calcium 8.3 L Nasal Screen MRSA (PCR) - Imaging Impressions Head CT 04/11/18 06:00 CONCLUSION: 1. Stable appearance of the small high density extra-axial hemorrhage along the left petrous ridge. . Carotid Doppler Study 04/11/18 12:18 CONCLUSION: 1. Right Internal Carotid Artery: Findings indicate <50% stenosis. 2. Left Internal Carotid Artery: Findings indicate <50% stenosis. Assessment and Plan (1) Closed head injury Status: Acute Code(s): S09.90XA - Unspecified injury of head, initial encounter - Plan Assessment: 1. Fall at home with closed head injury including small subdural hematoma 2. History of vertigo 3. Impaired mobility and ADLs Recommendations: 1. Patient is receiving physical therapy now standby assist to contact-guard for transfers and ambulates 90 feet with rolling walker. Continue to mobilize anticipating the patient should progress well 2. Continue close supervision for fall prevention 3. Speech therapy for cognitive eval 4. Case management is addressing discharge planning in conjunction with family. Prior to admission patient was living with her in [place], [place] in a mobile home with 3 steps to enter. She is independent with mobility and ADLs with no adaptive equipment. 5. Will follow while hospitalized and at discharge Thank you for this consult. (1) Closed head injury Qualifiers: Encounter type: initial encounter Qualified Code(s): S09.90XA - Unspecified injury of head, initial encounter
--- NOTE | 2018-04-11 17:40 | P.PNCC ---
Subjective Brief History: 87-year-old female with this mechanical fall early in the morning. No loss of consciousness patient has been complaining of pain around the occipital area no neck pain. Patient is neurologically intact hemodynamically normal with awake and alert with baseline dementia-mental status is unchanged from her baseline. She is to transfer from [facility] with a small subdural hematoma. CT of the head reveals small subtentorial subdural hematoma on the left side and patient is admitted to ICU for observation 24 Hour Review/Hospital Course: 04/11/2018 Patient is neurologically fully intact Awake alert oriented Repeat CT scan of the brain does not show any increase of the subdural hematoma and lesion is quite stable Motorically fully intact no lateralization Deep tendon reflexes normal no pathologic reflexes Bilateral carotid faint bruits Carotid ultrasound reveals about 40% bilateral internal carotid artery stenosis which is not hemodynamically significant that should be left alone Hemodynamically patient is stable Renal function normal Transfer patient to floor and then to rehab Continue supportive measures Objective Vital Signs / I&O: Vital Signs 04/10/18 18:00 04/10/18 19:00 04/10/18 19:39 Temperature Pulse Rate 79 68 70 Respiratory Rate 28 H 31 H 24 Blood Pressure 178/81 H 192/77 H Pulse Oximetry 98 04/10/18 20:00 04/10/18 20:28 04/10/18 20:36 Temperature 97.4 F L Pulse Rate 66 67 64 Respiratory Rate 23 26 H 22 Blood Pressure 141/64 H 154/65 H Pulse Oximetry 97 97 04/10/18 21:00 04/10/18 21:31 04/10/18 22:00 Temperature Pulse Rate 61 66 59 L Respiratory Rate 21 27 H 20 Blood Pressure 142/65 H Pulse Oximetry 97 95 04/10/18 22:24 04/10/18 23:00 04/10/18 23:20 Temperature Pulse Rate 68 63 67 Respiratory Rate 25 H 23 24 Blood Pressure 138/96 H 164/81 H Pulse Oximetry 95 04/10/18 23:44 04/10/18 23:46 04/11/18 00:00 Temperature 97.5 F L Pulse Rate 75 68 78 Respiratory Rate 27 H 22 22 Blood Pressure 162/73 H Pulse Oximetry 97 97 98 04/11/18 00:20 04/11/18 01:00 04/11/18 01:26 Temperature Pulse Rate 82 79 88 Respiratory Rate 23 20 27 H Blood Pressure 135/62 142/61 H Pulse Oximetry 96 96 04/11/18 02:00 04/11/18 02:20 04/11/18 03:00 Temperature Pulse Rate 76 74 76 Respiratory Rate 19 20 23 Blood Pressure 142/61 H 132/56 L Pulse Oximetry 95 96 99 04/11/18 03:58 04/11/18 04:00 04/11/18 04:20 Temperature 97.8 F Pulse Rate 71 79 76 Respiratory Rate 19 21 Blood Pressure 138/72 Pulse Oximetry 98 98 04/11/18 04:22 04/11/18 05:00 04/11/18 05:20 Temperature Pulse Rate 75 71 69 Respiratory Rate 21 25 H 18 Blood Pressure 157/67 H Pulse Oximetry 98 97 97 04/11/18 06:00 04/11/18 06:20 04/11/18 07:00 Temperature Pulse Rate 72 72 85 Respiratory Rate 20 21 18 Blood Pressure 147/115 H Pulse Oximetry 97 99 96 04/11/18 07:20 04/11/18 07:52 04/11/18 08:00 Temperature 97.7 F Pulse Rate 75 75 Respiratory Rate 23 Blood Pressure 149/67 H Pulse Oximetry 96 04/11/18 08:20 04/11/18 09:03 04/11/18 10:00 Temperature Pulse Rate 72 110 H Respiratory Rate 21 Blood Pressure 158/68 H 182/78 H Pulse Oximetry 96 04/11/18 10:20 04/11/18 11:00 04/11/18 11:53 Temperature Pulse Rate 110 H 103 H 90 Respiratory Rate 20 22 Blood Pressure 130/69 139/63 Pulse Oximetry 96 04/11/18 12:00 04/11/18 12:41 04/11/18 13:00 Temperature 97.8 F Pulse Rate 76 68 Respiratory Rate 21 25 H Blood Pressure 123/53 L Pulse Oximetry 94 L 04/11/18 14:00 04/11/18 14:35 04/11/18 15:45 Temperature Pulse Rate 98 H 97 H Respiratory Rate 28 H 22 Blood Pressure 153/71 H 153/71 H 152/71 H Pulse Oximetry 97 98 04/11/18 16:00 04/11/18 17:32 Temperature Pulse Rate 90 92 H Respiratory Rate 23 Blood Pressure Pulse Oximetry 98 Intake & Output 04/10/18 04/11/18 04/11/18 18:59 06:59 18:59 Intake Total 240 / 240 500 / 500 Output Total 1200 / 1200 400 / 400 Balance -960 / -960 100 / 100 Weight 88.3 kg 88.3 kg Intake: IV 500 / 500 NS Inj 1,000 ML @ 50 mls/hr IV. 500 / 500 CONT .[facility]20H [facility] Rx#:[id number] Oral 240 / 240 Output: Urine Amount (Catheter) 1200 / 1200 400 / 400 Indwelling Urethral Catheter 1200 / 1200 400 / 400 Other: Date of Last Bowel Movement 04/11/18 Weight On Admission 88.3 kg Result Diagrams: 04/11/18 05:17 04/11/18 05:17 Imaging: Impressions Head CT 04/11/18 06:00 CONCLUSION: 1. Stable appearance of the small high density extra-axial hemorrhage along the left petrous ridge. . Carotid Doppler Study 04/11/18 12:18 CONCLUSION: 1. Right Internal Carotid Artery: Findings indicate <50% stenosis. 2. Left Internal Carotid Artery: Findings indicate <50% stenosis. Disinhibition Score: 14.00 Aggression Score: 14.00 Lability Score: 14.00 Agitated Behavior Total Score: 14
--- NOTE | 2018-04-11 19:50 | P.DCO ---
- Physical Therapy Order: Evaluate and treat, Improve ambulation, Strength and gait training - Home Health Nursing Order: Medical education, Signs/symptoms of disease process, Oxygen administration education, Nursing assessment with vital signs - Case Management Consult Case Management Consult-Home Health: Yes - Certification I have seen patient Jaylene Nelson on 04/11/18. My clinical findings support the need for the requested home health care services because: Limited mobility due to disease progression, Deconditioned with increased weakness, Medication compliance is questionable, Limited ability to care for self, High risk of falls I certify that my clinical findings support that this patient is homebound because: Post-op weakness, Unsteady gait/balance, Unsafe to leave home unassisted, Unable to use public transportation
--- NOTE | 2018-04-11 20:23 | CT ---
EXAM DATE: 04/11/2018 8:12 PM EST AGE/SEX: 87 years / Female INDICATIONS: Neck pain, trauma from fall CLINICAL DATA: This is the patient's initial encounter. Patient reports that signs and symptoms have been present for 1 day and indicates a pain score of 2/10. MEDICAL/SURGICAL HISTORY: Vertigo. Thyroid disease Cholecystectomy. Hysterectomy. s ection. Thyroidectomy RADIATION DOSE: 42.67 CTDI (mGy) COMPARISON: No prior exams available for comparison. TECHNIQUE: Contiguous axial images were obtained using helical multirow detector technique. The vol umetric data was post-processed with multiplanar reconstruction in oblique axial, sagittal, and coron al planes. Using automated exposure control and adjustment of the mA and/or kV according to patient s ize, radiation dose was kept as low as reasonably achievable to obtain optimal diagnostic quality denise ges. DICOM format image data is available electronically for review and comparison. FINDINGS: No significant subluxation or soft tissue swelling is seen. No definite fracture is identified for t echnique. C2-C3: No appreciable compromise to the thecal sac, exiting nerve roots are seen. The neural foramin a are patent bilaterally. No appreciable thecal sac stenosis is seen. Mild central disc protrusion is present without any significant compromise to the thecal sac or the exiting nerve roots. C3-C4: No appreciable compromise to the thecal sac, exiting nerve roots are seen. The neural foramin a are patent bilaterally. No appreciable thecal sac stenosis is seen. Slight bulging disc and hypertr ophic changes are seen with indentation on the thecal sac and no significant compromise to the thecal sac or the exiting nerve roots. C4-C5: Moderate degenerative changes are present in the disc space and facets. There is slight neura l foramina compromise on the left due to asymmetrical bulging disc and hypertrophic changes. Slight bulging disc and hypertrophic changes are seen with indentation on the thecal sac and no significant compromise to the thecal sac. C5-C6: Significant degenerative changes are present in the disc space and facets. There is slight n eural foramina compromise bilaterally due to bulging disc and hypertrophic changes. Slight osteophyt e formation bulging disc protrude posteriorly partially into the bilateral lateral recess without any significant lateral recess stenosis. Slight bulging disc and hypertrophic changes are seen with ind entation on the thecal sac and no significant compromise to the thecal sac. C6-C7: Significant degenerative changes are present in the disc space and facets. There is slight n eural foramina compromise bilaterally due to bulging disc and hypertrophic changes. Slight osteophyt e formation bulging disc protrude posteriorly partially into the bilateral lateral recess without any significant lateral recess stenosis. Slight bulging disc and hypertrophic changes are seen with ind entation on the thecal sac and no significant compromise to the thecal sac. C7-T1: No appreciable compromise to the thecal sac, exiting nerve roots are seen. The neural foramin a are patent bilaterally. No appreciable thecal sac stenosis is seen. Moderate degenerative changes a re present in the disc space and facets. 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 Electronically signed by: Maura Conklin MD Board Certified Radiologist 04/11/2018 8:21 PM EST
[2018-04-11 22:45] VITALS: O2SAT 96
[2018-04-12 01:10] VITALS: TEMP 98.1
[2018-04-12] MEDS: Chlorhexidine Gluconate 2% 1 Pack (2 Cloths) TOPICAL SCH (03:52)
[2018-04-12 05:33] LABS: White Blood Count 8.2 th/mm3 (4.0-11.0)
[2018-04-12 05:34] LABS: Baso % (Auto) 0.4 % (0.0-2.0); Eos # (Auto) 0.1 th/mm3 (0.0-0.4); Eos % (Auto) 1.6 % (0.0-4.0); Hematocrit 29.7 % (35.0-46.0); Hemoglobin 9.9 gm/dL (11.6-15.3); Lymph # (Auto) 0.9 th/mm3 (1.0-4.8); Lymph % (Auto) 10.4 % (9.0-44.0); Mean Corpuscular HGB Conc 33.4 % (32.0-36.0); Mean Corpuscular Volume 98.6 fL (80.0-100.0); Mono # (Auto) 0.5 th/mm3 (0.0-0.9); Mono % (Auto) 5.9 % (0.0-8.0); Neut # (Auto) 6.7 th/mm3 (1.8-7.7); Neut % (Auto) 81.7 % (16.0-70.0); Platelet Count 192 th/mm3 (150-450); Red Blood Count 3.01 mil/mm3 (4.00-5.30); Red Cell Distribution Width 14.3 % (11.6-17.2)
[2018-04-12 05:57] LABS: Albumin 3.2 g/dL (3.4-5.0); Anion Gap 5 meq/L (5-15); Aspartate Aminotransferase 21 U/L (15-37); Blood Urea Nitrogen 39 mg/dL (7-18); Calcium 8.3 mg/dL (8.5-10.1); Carbon Dioxide 23.5 meq/L (21.0-32.0); Chloride 112 meq/L (98-107); Glomerular Filtration Rate 21 mL/min (>89); Glucose,Random 79 mg/dL (74-106); Potassium 5.6 meq/L (3.5-5.1); Sodium 140 meq/L (136-145)
[2018-04-12 05:59] LABS: Alanine Aminotransferase 13 U/L (10-53)
[2018-04-12] MEDS: Sod Chloride 0.9% Inj 1,000 ML IV.CONT SCH (06:00)
[2018-04-12 06:01] LABS: Alkaline Phosphatase 64 U/L (45-117); Total Protein 6.6 g/dL (6.4-8.2)
[2018-04-12] MEDS: Levothyroxine 50 MCG Tablet PO SCH (06:13)
[2018-04-12] MEDS: amLODIPine 5 MG Tablet PO SCH (09:06)
[2018-04-12] MEDS: Docusate Sodium 100 MG Capsule PO SCH (09:06)
[2018-04-12] MEDS: Famotidine 20 MG Tablet PO SCH (09:06)
[2018-04-12] MEDS ORDERED: Sod Chloride 0.9% Inj 1,000 ML IV.SIG SCH (10:45)
[2018-04-12 10:59] VITALS: BP 171/77; RESP 22
--- NOTE | 2018-04-12 11:08 | P.DS ---
Date of admission: 04/10/18 08:29 Primary care physician: Erlin Wynn MD Attending physician on discharge: Cristina Lehman Anticipated date of discharge: 04/12/18 Brief History from admission: Fall. DS: Medications - Discharge Medications Prescriptions: acetaminophen [Tylenol] 650 mg PO Q6H PRN 7 Days cap PRN Reason: Pain DS: Summary Hospital Course: [place] CHIN: This is a 87-year-old female who sustained a fall. It was a mechanical fall that was witnessed. No LOC. INJURIES: LEFT SDH (8mm) PMHx: Vertigo. HTN. Thyroid disease. Takes aspirin daily. ? Dementia Consults: CCM. Neurosurgery. Rehab medicine. Case management. The patient really wants to go home. The patient is now tolerating a po diet. Eating and drinking well. Pain is being managed well with PO pain medications, the patient can continue with Tylenol OTC for continued pain management. (NO driving while taking narcotic pain medication enforced to patient.) Pt is having regular bowel movements, and have recommended to patient to continue with stool softeners while taking narcotic pain medications to prevent constipation. Pt has been participating in PT and OT while admitted at [facility] and has been ambulating with their assistance and independently. PT recommends home health care. [id number] completed. No DME needed All follow up appointments have been provided and discussed with the patient. It is recommended that the patient keeps all his follow up appointments for continued recovery. Patient's condition and plan of care discussed with collaborating trauma surgeon. He is agreeable to plan for discharge today. Therefore, the patient is stable to be safely discharged home from a trauma surgery standpoint. Thank you for allowing us to participate in hER care. We wish Jaylene the best in hER recovery. SDH. Neurosurgery consulted and assisting in management and care Nonoperative management at this time 04/11: CT C spine - NEG 04/11: Carotid US - 50% stenosis bilat 04/11: Follow-up CT brain - stable Supportive care Serial neuro checks CT brain for any change in neurological status Pain management Seizure precautions Seizure prophylaxis -not indicated per neurosurgery's recommendations Encourage out of bed PT and OT ordered Patient is cleared by neurosurgery for discharge - Time Spent with Patient Total time spent providing and/or coordinating discharge services: Greater than 30 minutes Exam Vital signs: Vital Signs 04/11/18 11:53 04/11/18 12:00 04/11/18 12:41 Temperature 97.8 F Pulse Rate 90 76 Respiratory Rate 21 Blood Pressure 139/63 123/53 L Pulse Oximetry 96 94 L 04/11/18 13:00 04/11/18 14:00 04/11/18 14:35 Temperature Pulse Rate 68 98 H Respiratory Rate 25 H 28 H Blood Pressure 153/71 H 153/71 H Pulse Oximetry 97 04/11/18 15:45 04/11/18 16:00 04/11/18 17:07 Temperature Pulse Rate 97 H 90 88 Respiratory Rate 22 23 16 Blood Pressure 152/71 H Pulse Oximetry 98 98 04/11/18 17:28 04/11/18 17:32 04/11/18 18:00 Temperature Pulse Rate 92 H 86 Respiratory Rate 22 Blood Pressure 135/93 H Pulse Oximetry 04/11/18 19:00 04/11/18 19:08 04/11/18 19:36 Temperature Pulse Rate 83 84 Respiratory Rate 23 36 H Blood Pressure 190/72 H Pulse Oximetry 04/11/18 19:38 04/11/18 19:40 04/11/18 20:00 Temperature 97.6 F Pulse Rate 84 87 Respiratory Rate 23 18 Blood Pressure 180/77 H 133/63 133/63 Pulse Oximetry 96 04/11/18 20:12 04/11/18 22:00 04/11/18 22:19 Temperature Pulse Rate 98 H 79 85 Respiratory Rate 23 Blood Pressure Pulse Oximetry 04/11/18 22:20 04/11/18 22:49 04/11/18 23:00 Temperature 97.6 F Pulse Rate 88 79 72 Respiratory Rate 23 23 19 Blood Pressure 146/58 H 146/58 H Pulse Oximetry 04/11/18 23:49 04/12/18 00:00 04/12/18 01:00 Temperature 97.6 F 98.1 F Pulse Rate 79 63 63 Respiratory Rate 23 17 17 Blood Pressure 146/58 H 136/62 Pulse Oximetry 04/12/18 01:03 04/12/18 02:00 04/12/18 02:02 Temperature Pulse Rate 64 62 67 Respiratory Rate 24 14 23 Blood Pressure 136/62 116/58 L Pulse Oximetry 04/12/18 03:00 04/12/18 04:00 04/12/18 05:00 Temperature 98.1 F Pulse Rate 60 62 64 Respiratory Rate 18 14 17 Blood Pressure 106/53 L 107/73 129/61 Pulse Oximetry 04/12/18 06:00 04/12/18 06:10 04/12/18 06:35 Temperature Pulse Rate 67 66 68 Respiratory Rate 18 19 18 Blood Pressure 161/95 H 168/69 H Pulse Oximetry 04/12/18 07:00 04/12/18 07:24 04/12/18 07:27 Temperature Pulse Rate 67 86 76 Respiratory Rate 17 24 22 Blood Pressure 185/75 H 157/68 H Pulse Oximetry 04/12/18 08:00 04/12/18 09:00 04/12/18 09:07 Temperature Pulse Rate 66 69 80 Respiratory Rate 17 19 20 Blood Pressure Pulse Oximetry 04/12/18 09:15 04/12/18 09:18 04/12/18 10:00 Temperature Pulse Rate 87 79 Respiratory Rate 22 Blood Pressure 192/77 H 171/77 H Pulse Oximetry Intake & Output 04/11/18 04/12/18 04/12/18 18:59 06:59 18:59 Intake Total 500 / 500 100 / 100 Output Total 400 / 400 Balance 100 / 100 100 / 100 Weight 88.3 kg 88.1 kg Intake: IV 500 / 500 100 / 100 NS Inj 1,000 ML @ 50 mls/hr IV. 500 / 500 CONT .Q20H NARGIS Rx#:[id number] Ofirmev Inj 1,000 mg In 100 ml 100 / 100 @ 400 mls/hr IV.SIG Q6H PRN Rx# :[id number] Output: Urine Amount (Catheter) 400 / 400 Indwelling Urethral Catheter 400 / 400 Other: # Voids 8 2 # Urine Diapers 1 Date of Last Bowel Movement 04/11/18 04/11/18 04/11/18 # Bowel Movements 2 0 Weight On Admission 88.3 kg Narrative: GENERAL: This is a 87-year-old female OOB in a recliner chair. No distress noted. SKIN: Warm and dry. HEAD: Atraumatic. Normocephalic. EYES: PERRLA ENT: No nasal bleeding or discharge. Mucous membranes pink and moist. NECK: Trachea midline. No JVD. CARDIOVASCULAR: Regular rate and rhythm. RESPIRATORY: No accessory muscle use. Lungs are clear to auscultation. Breath sounds equal bilaterally. No distress or dyspnea. GASTROINTESTINAL: BS + x 4 quads. Abdomen soft, non-tender, nondistended. MUSCULOSKELETAL: Extremities without cyanosis, or edema. + peripheral pulses x 4 extremities. Warm with good capillary refill and sensation. MAEW. NEUROLOGICAL: Awake and alert. Normal speech and pattern. Results Procedures completed during hospitalization: . Labs on day of discharge: Labs from last 24 hours 04/12/18 04/12/18 04:29 04:29 WBC 8.2 RBC 3.01 L Hgb 9.9 L Hct 29.7 L MCV 98.6 MCH 33.0 MCHC 33.4 RDW 14.3 Plt Count 192 MPV 8.0 Neut % (Auto) 81.7 H Lymph % (Auto) 10.4 Kane % (Auto) 5.9 Eos % (Auto) 1.6 Baso % (Auto) 0.4 Neut # (Auto) 6.7 Lymph # (Auto) 0.9 L Kane # (Auto) 0.5 Eos # (Auto) 0.1 Baso # (Auto) 0.0 WBC Differential . Differential Comment Auto diff final Sodium 140 Potassium 5.6 H Chloride 112 H Carbon Dioxide 23.5 Anion Gap 5 BUN 39 H Creatinine 2.20 H Estimated GFR 21 L Random Glucose 79 Calcium 8.3 L Total Bilirubin 0.4 AST 21 ALT 13 Alkaline Phosphatase 64 Total Protein 6.6 Albumin 3.2 L - Impressions ITS Impressions Chest X-Ray 04/10/18 08:27 CONCLUSION: Stable chest without evidence of acute cardiopulmonary process. 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 Head CT 04/11/18 06:00 CONCLUSION: 1. Stable appearance of the small high density extra-axial hemorrhage along the left petrous ridge. . Carotid Doppler Study 04/11/18 12:18 CONCLUSION: 1. Right Internal Carotid Artery: Findings indicate <50% stenosis. 2. Left Internal Carotid Artery: Findings indicate <50% stenosis. Discharge Plan - Discharge Disposition Patient Disposition: /Home Health Service - Discharge Condition Condition: Stable - Discharge Order Discharge Orders: Discharge Order (Routine); Ordered 04/12/18 Ordered By: Araceli Vernon - Discharge Details Anticipated Discharge Date: 04/12/18 - Physicians Team Primary Care Provider: Erlin Wynn Attending Provider: Ilene Kendall Other Providers: Ulysses Jackson MD ; Tho Carvalho MD ; Yovani Knox MD ; Roberto Curran MD ; [employer] ; Oscar Lane MD ; Araceli Boateng ARNP ; Eric Brown MD ; Ilene Kendall MD ; Henry Pacheco ARNP ; Cristina Lehman MD ; Sam German, PhD ; Ruth Lund MD
[2018-04-12 12:11] VITALS: PULSE 70
== END 2018-04-12 12:50 | disposition home health service (06) | DRG 87 ==
LOC: PHED 06:15 → PHEDA 08:29 → N03 11:00
PROVIDERS: ADMIT Surgery Trauma Surgery; ATTEND Surgery Trauma Surgery
CPT/HCPCS: 36415; 70450; 71010; 71045; 72125; 80048; 80053; 80061; 81001; 83036; 83721; 84439; 84443; 84484; 85025; 85027; 85610; 85730; 87641; 93005; 93880; 94150; 97162; 97167; 99285; J0131; J0360; J7030